=== PATIENT | male | born 1975 | race Caucasian/White ===

== ENCOUNTER 2022-05-22 20:36 | Observation (INO) | payer BC, OTHER ==
--- NOTE | 2022-05-22 20:53 | ED ---
General Adult HPI - General Chief complaint: Chest Pain Stated complaint: Chest Pain Time Seen by Provider: 05/22/22 20:51 Source: patient, EMS Mode of arrival: EMS Limitations: no limitations - History of Present Illness Initial comments: Patient presents to the ED by ambulance for evaluation. Patient states that he developed "sharp" chest pain "across my chest" about an hour and a half ago while at rest. Patient states that his pain radiated to his back and into his left arm. Patient states that he had associated nausea, diaphoresis and dyspnea. Patient states that his pain and symptoms have completely resolved at this time. Patient was given a dose of aspirin by EMS. Patient states that he had similar symptoms last night, and he states that he went to [facility] at that time. Patient states that he was admitted to the [facility] hospital overnight, and he was discharged home this morning. Patient states that he had borderline troponins at that hospital. Patient has CAD risk factors of hypertension, hyperlipidemia, family history and smoking. Patient denies fever or chills, headache, focal numbness/weakness/neuro deficit, neck/jaw pain, pleuritic pain, cough or cold symptoms, palpitations, dizziness, syncope, vomiting, abdominal pain, dysuria or urinary symptoms, decreased urine output, leg or calf swelling or pain, or any other symptoms or complaints. - Related Data Allergies Allergy/AdvReac Type Severity Reaction Status Date / Time No Known Allergies Allergy Verified 05/22/22 20:43 Review of Systems ROS Statement: Those systems with pertinent positive or pertinent negative responses have been documented in the HPI. ROS Other: All systems not noted in ROS Statement are negative. Past Medical History Past Medical History: Hyperlipidemia, Hypertension History of Any Multi-Drug Resistant Organisms: None Reported Past Surgical History: No Surgical Hx Reported Past Psychological History: No Psychological Hx Reported Smoking Status: Current some day smoker General Exam Limitations: no limitations General appearance: alert, in no apparent distress Head exam: Present: atraumatic, normocephalic Eye exam: Present: normal appearance, EOMI ENT exam: Present: mucous membranes moist Neck exam: Present: other (Trachea is in midline) Respiratory exam: Present: normal lung sounds bilaterally. Absent: respiratory distress, wheezes, rales, rhonchi, stridor, chest wall tenderness Cardiovascular Exam: Present: regular rate, normal rhythm, normal heart sounds, other (Normal radial pulses bilaterally) GI/Abdominal exam: Present: soft. Absent: distended, tenderness, guarding Extremities exam: Present: other (Negative Homans sign bilaterally). Absent: tenderness, pedal edema, calf tenderness Neurological exam: Present: alert, oriented X3. Absent: motor sensory deficit Psychiatric exam: Present: normal affect, normal mood Skin exam: Present: warm, dry, intact, normal color Course Vital Signs 05/22/22 05/22/22 20:38 20:44 Temperature 97.8 F 98 F Pulse Rate 88 90 Respiratory 16 16 Rate Blood Pressure 109/81 109/81 O2 Sat by Pulse 100 98 Oximetry - Reevaluation(s) Reevaluation #1: 05/22/22 21:42 Case, H&P, test results and EMS management were discussed with Dr Perez. He accepts hospital admission. He agrees with cardiology consultation. He has no further recommendations at this time. 05/22/22 21:47 Patient remains alert and breathing comfortably with a normal room air oxygen saturation. Patient continues to deny having any chest pain or symptoms while in the ED. Patient is aware of his test results, and he agrees with hospital admission at this time. EKG Findings - EKG Comments: EKG Findings:: Normal sinus rhythm, ventricular rate of 82 bpm, no ectopy, normal CO and QRS intervals, normal QT interval, leftward axis, no ST or T-wave abnormality Medical Decision Making - Medical Decision Making Given the patient's CAD risk factors, reported history and Heart score of 4, will admit the patient to the hospital for serial troponins, cardiac monitoring and cardiology consultation. Patient's initial troponin is negative. Patient's EKG does not demonstrate any ST or T-wave abnormality. Patient's d-dimer and chest x-ray are also negative. Dr. Perez has accepted hospital admission. Patient was given a dose of aspirin by EMS. - Lab Data Result diagrams: 05/22/22 20:58 05/22/22 20:58 Lab Results 05/22/22 05/22/22 05/22/22 Range/Units 20:58 20:58 20:58 WBC 8.6 (3.8-10.6) k/uL RBC 5.20 (4.30-5.90) m/uL Hgb 15.0 (13.0-17.5) gm/dL Hct 42.8 (39.0-53.0) % MCV 82.4 (80.0-100.0) fL MCH 28.8 (25.0-35.0) pg MCHC 35.0 (31.0-37.0) g/dL RDW 13.3 (11.5-15.5) % Plt Count 213 (150-450) k/uL MPV 8.1 Neutrophils % 64 % Lymphocytes % 26 % Monocytes % 6 % Eosinophils % 3 % Basophils % 0 % Neutrophils # 5.5 (1.3-7.7) k/uL Lymphocytes # 2.2 (1.0-4.8) k/uL Monocytes # 0.5 (0-1.0) k/uL Eosinophils # 0.2 (0-0.7) k/uL Basophils # 0.0 (0-0.2) k/uL PT 9.9 (9.0-12.0) sec INR 0.9 (<1.2) APTT 24.4 (22.0-30.0) sec D-Dimer 0.23 (<0.60) mg/L FEU Sodium 139 (137-145) mmol/L Potassium 4.1 (3.5-5.1) mmol/L Chloride 105 (98-107) mmol/L Carbon Dioxide 23 (22-30) mmol/L Anion Gap 11 mmol/L BUN 18 (9-20) mg/dL Creatinine 0.84 (0.66-1.25) mg/dL Est GFR (CKD-EPI)AfAm >90 (>60 ml/min/1.73 sqM) Est GFR (CKD-EPI)NonAf >90 (>60 ml/min/1.73 sqM) Glucose 213 H (74-99) mg/dL Calcium 8.9 (8.4-10.2) mg/dL Magnesium 1.9 (1.6-2.3) mg/dL Total Bilirubin 0.5 (0.2-1.3) mg/dL AST 29 (17-59) U/L ALT 42 (4-49) U/L Alkaline Phosphatase 68 (38-126) U/L Troponin I (0.000-0.034) ng/mL NT-Pro-B Natriuret Pep pg/mL Total Protein 6.6 (6.3-8.2) g/dL Albumin 4.4 (3.5-5.0) g/dL 05/22/22 05/22/22 Range/Units 20:58 20:58 WBC (3.8-10.6) k/uL RBC (4.30-5.90) m/uL Hgb (13.0-17.5) gm/dL Hct (39.0-53.0) % MCV (80.0-100.0) fL MCH (25.0-35.0) pg MCHC (31.0-37.0) g/dL RDW (11.5-15.5) % Plt Count (150-450) k/uL MPV Neutrophils % % Lymphocytes % % Monocytes % % Eosinophils % % Basophils % % Neutrophils # (1.3-7.7) k/uL Lymphocytes # (1.0-4.8) k/uL Monocytes # (0-1.0) k/uL Eosinophils # (0-0.7) k/uL Basophils # (0-0.2) k/uL PT (9.0-12.0) sec INR (<1.2) APTT (22.0-30.0) sec D-Dimer (<0.60) mg/L FEU Sodium (137-145) mmol/L Potassium (3.5-5.1) mmol/L Chloride (98-107) mmol/L Carbon Dioxide (22-30) mmol/L Anion Gap mmol/L BUN (9-20) mg/dL Creatinine (0.66-1.25) mg/dL Est GFR (CKD-EPI)AfAm (>60 ml/min/1.73 sqM) Est GFR (CKD-EPI)NonAf (>60 ml/min/1.73 sqM) Glucose (74-99) mg/dL Calcium (8.4-10.2) mg/dL Magnesium (1.6-2.3) mg/dL Total Bilirubin (0.2-1.3) mg/dL AST (17-59) U/L ALT (4-49) U/L Alkaline Phosphatase (38-126) U/L Troponin I 0.027 (0.000-0.034) ng/mL NT-Pro-B Natriuret Pep 36 pg/mL Total Protein (6.3-8.2) g/dL Albumin (3.5-5.0) g/dL - Radiology Data Chest x-ray: Normal chest. Disposition Clinical Impression: Chest pain Disposition: ADMITTED IP TO THIS HOSP Condition: Stable Is patient prescribed a controlled substance at d/c from ED?: No Referrals: Konrad Rangel MD [Primary Care Provider] - 1-2 days Time of Disposition: 21:48
[2022-05-22 21:03] LABS: Basophils % (A) 0 %; Eosinophils # (A) 0.2 k/uL (0-0.7); Eosinophils % (A) 3 %; HCT 42.8 % (39.0-53.0); Lymphocytes # (A) 2.2 k/uL (1.0-4.8); Lymphocytes % (A) 26 %; MCH 28.8 pg (25.0-35.0); MCV 82.4 fL (80.0-100.0); Mean Platelet Volume 8.1; Monocytes # (A) 0.5 k/uL (0-1.0); Monocytes % (A) 6 %; Neutrophils # (A) 5.5 k/uL (1.3-7.7); Neutrophils % (A) 64 %; Platelet Count 213 k/uL (150-450); RDW 13.3 % (11.5-15.5); WBC 8.6 k/uL (3.8-10.6)
[2022-05-22 21:13] LABS: ALT 42 U/L (4-49); AST 29 U/L (17-59); African American GFR (CKD) >90 (>60 ml/min/1.73 sqM); Albumin 4.4 g/dL (3.5-5.0); Alkaline Phosphatase 68 U/L (38-126); Anion Gap 11 mmol/L; Blood Urea Nitrogen 18 mg/dL (9-20); Calcium 8.9 mg/dL (8.4-10.2); Carbon Dioxide 23 mmol/L (22-30); Chloride 105 mmol/L (98-107); Glucose 213 mg/dL (74-99); Magnesium 1.9 mg/dL (1.6-2.3); Non-African American GFR(CKD) >90 (>60 ml/min/1.73 sqM); Potassium 4.1 mmol/L (3.5-5.1); Sodium 139 mmol/L (137-145); Total Bilirubin 0.5 mg/dL (0.2-1.3); Total Protein 6.6 g/dL (6.3-8.2)
[2022-05-22 21:17] LABS: INR 0.9 (<1.2); Partial Thromboplastin Time 24.4 sec (22.0-30.0); Prothrombin Time 9.9 sec (9.0-12.0)
--- NOTE | 2022-05-22 21:23 | XR ---
EXAMINATION TYPE: XR chest 2V DATE OF EXAM: 05/22/2022 COMPARISON: NONE HISTORY: Chest pain TECHNIQUE: 2 views FINDINGS: Heart and mediastinum are normal. Lungs are clear. Diaphragm is normal. Bony thorax is inta ct. IMPRESSION: Normal chest.
[2022-05-23 03:32] LABS: Basophils # (A) 0.1 k/uL (0-0.2); Basophils % (A) 1 %; Eosinophils # (A) 0.3 k/uL (0-0.7); Eosinophils % (A) 3 %; HCT 43.3 % (39.0-53.0); HGB 14.6 gm/dL (13.0-17.5); Lymphocytes # (A) 2.8 k/uL (1.0-4.8); Lymphocytes % (A) 32 %; MCH 28.1 pg (25.0-35.0); MCHC 33.8 g/dL (31.0-37.0); MCV 83.4 fL (80.0-100.0); Mean Platelet Volume 8.3; Monocytes # (A) 0.6 k/uL (0-1.0); Monocytes % (A) 6 %; Neutrophils % (A) 57 %; Platelet Count 196 k/uL (150-450); RDW 13.3 % (11.5-15.5); WBC 8.9 k/uL (3.8-10.6)
[2022-05-23 04:02] LABS: ALT 39 U/L (4-49); AST 25 U/L (17-59); African American GFR (CKD) >90 (>60 ml/min/1.73 sqM); Albumin 4.3 g/dL (3.5-5.0); Alkaline Phosphatase 70 U/L (38-126); Anion Gap 9 mmol/L; Blood Urea Nitrogen 16 mg/dL (9-20); Carbon Dioxide 22 mmol/L (22-30); Chloride 108 mmol/L (98-107); Glucose 171 mg/dL (74-99); Non-African American GFR(CKD) >90 (>60 ml/min/1.73 sqM); Sodium 139 mmol/L (137-145); Total Bilirubin 0.5 mg/dL (0.2-1.3); Total Protein 6.3 g/dL (6.3-8.2)
[2022-05-23] MEDS ORDERED: HEPARIN SODIUM 1,000 UN/ML (10ML VL) IV ONE (04:22)
[2022-05-23] MEDS ORDERED: HEPARIN SODIUM 1,000 UN/ML (10ML VL) IV PRN (04:22)
--- NOTE | 2022-05-23 04:26 | P.HPIM ---
History of Present Illness H&P Date: 05/22/22 The patient is a 47-year-old male with a PMH of type II DM who presents to the emergency room with complaints of chest discomfort. The patient reports that he was at home resting comfortably when he suddenly developed substernal chest pressure, with radiation of the left arm and associated shortness of breath and nausea. 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 States that the pain was 10 out of 10 in maximum intensity, constant, nonpleuritic, lasted for about an hour and half and resolved completely. Reports feeling back at his baseline at the time of interview. Does report that his father at the age of 37 after massive ID. EKG in the emergency room revealed sinus rhythm at 82 bpm with left axis deviation with no ST/T-wave changes noted as reviewed by me. Chest x-ray was unremarkable. Laboratory evaluation was remarkable for troponin 0.027 and glucose 213. Review of systems: Pertinent positives and negatives as discussed in HPI, a complete review of systems was performed and all other systems are negative. Physical examination: General: non toxic, no distress, appears at stated age, obese Derm: no unusual rashes/lesions, warm Head: atraumatic, normocephalic, symmetric Eyes: EOMI, no lid lag, anicteric sclera, pupils equal round reactive to light ENT: Nose and ears atraumatic Neck: No cervical lymphadenopathy, trachea midline, supple Mouth: no lip lesion, mucus membranes moist Cardiovascular: S1S2 reg, no murmur, positive dorsalis pedis pulse bilateral, no edema Lungs: CTA bilateral, no rhonchi, no rales, no accessory muscle use Abdominal: soft, nontender to palpation, no guarding Ext: muscle strength 5 out of 5 in all 4 extremities grossly, no gross muscle atrophy, no contractures, Neuro: CN II-XI grossly intact, no gross focal neuro deficits Psych: Alert, oriented, appropriate affect Assessment/plan Chest pain, rule out ACS -Cardiology consulted -Cardiac monitoring -Trend troponin -Continue with aspirin, statin -Echocardiogram Type II DM -Check A1c -Insulin sliding scale and blood glucose monitoring DVT prophylaxis -Heparin subcu The patient is admitted with an anticipated less than 2 midnight stay for evaluation of chest pain. CODE STATUS: Full Code Discussed with: Patient Anticipated discharge date: In a.m. Anticipated discharge place: Home Past Medical History Past Medical History: Hyperlipidemia, Hypertension History of Any Multi-Drug Resistant Organisms: None Reported Past Surgical History: No Surgical Hx Reported Past Psychological History: No Psychological Hx Reported Smoking Status: Current some day smoker - Past Family History Mother Family Medical History: Coronary Artery Disease (CAD) Medications and Allergies Home Medications Medication Instructions Recorded Confirmed Type Fenofibrate 160 mg PO HS 05/22/22 05/22/22 History Pravastatin Sodium [Pravachol] 40 mg PO HS 05/22/22 05/22/22 History lisinopriL [Zestril] 20 mg PO DAILY 05/22/22 05/22/22 History Allergies Allergy/AdvReac Type Severity Reaction Status Date / Time No Known Allergies Allergy Verified 05/22/22 21:51 Physical Exam Vitals: Vital Signs Temp Pulse Resp BP Pulse Ox 05/22/22 22:07 68 16 108/91 98 05/22/22 20:44 98 F 90 16 109/81 98 05/22/22 20:38 97.8 F 88 16 109/81 100 Intake and Output 05/22/22 05/22/22 05/23/22 14:59 22:59 06:59 Other: Weight 97.522 kg Results CBC & Chem 7: 05/23/22 03:12 05/23/22 03:12 Labs: Abnormal Lab Results - Last 24 Hours (Table) 05/22/22 Range/Units 20:58 Glucose 213 H (74-99) mg/dL
[2022-05-23] MEDS: ASPIRIN 325 MG TAB PO SCH ×2 (04:44→16:55)
[2022-05-23] MEDS: ATORVASTATIN 80 MG TAB PO SCH ×2 (04:44→20:34)
[2022-05-23] MEDS: HEPARIN SOD,PORK IN 0.45% NACL 25,000 UNIT in 0.45% NACL 1 250ML.BAG IV SCH (04:45)
[2022-05-23 05:30] LABS: Glucose,Whole Blood 172 mg/dL (70-110)
[2022-05-23] MEDS: INSULIN ASPART (NovoLOG) 100 UNIT/ML VIAL SQ SCH ×4 (06:44→20:36)
[2022-05-23] MEDS ORDERED: ALPRAZolam 0.5 MG TAB PO PRN (07:18)
[2022-05-23] MEDS ORDERED: NITROGLYCERIN SL TABS 0.4 MG TAB SUBLINGUAL PRN ×2 (07:18→11:11)
[2022-05-23] MEDS ORDERED: ALPRAZolam 0.25 MG TAB PO PRN (07:18)
--- NOTE | 2022-05-23 09:43 | P.CRDCN ---
History of Present Illness History of present illness: HISTORY OF PRESENTING ILLNESS This is a pleasant 47-year-old male past medical history significant for hypertension, dyslipidemia, borderline diabetes intolerance to metformin. 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 We have been asked to see in consultation for chest pain. Patient presents emergency department with complaints of chest discomfort that began on Monday night and progressed into Monday morning. He states that he was sitting down, had sharp chest pain across his chest. Radiating to his back and his left arm. He had associated shortness of breath. His pain lasted for about 2 hours. He initially presented to [facility] at that time, patient states he was admitted overnight but was discharged in the morning to follow up with cardiology. He continued to have chest discomfort and presented to [facility]. He denies any diaphoresis, nausea, vomiting, lightheadedness, dizziness, syncope or near syncope. He states that he occasionally smokes cigarettes. Denies illicit drug use. Family history includes his father had an AL in his 30s. His chest pain has resolved at time of exam. DIAGNOSTICS * EKG reveals sinus rhythm, heart rate 82, mild ST abnormalities inferiorly, T wave abnormalities in V2. No prior EKGs to compare * Telemetry tracings indicate sinus mechanism * Chest xray no acute cardiopulmonary process * Laboratory reviewed, troponin negative, repeat 0.075) 76, CBC unremarkable, d- dimer negative, sodium 139, potassium 4.0, BUN 16, serum ferritin 0.7, magnesium 1.9, proBNP 36 * Current home medications include lisinopril 20 mg daily, pravastatin 40 mg daily, fenofibrate 160 mg nightly REVIEW OF SYSTEMS At the time of my exam: Patient's symptoms have resolved CONSTITUTIONAL: Denies fever or chills. CARDIOVASCULAR: Denies chest pain, shortness of breath, orthopnea, PND or palpitations. RESPIRATORY: Denies cough. GASTROINTESTINAL: Denies abdominal pain, diarrhea, constipation, nausea or vomiting. MUSCULOSKELETAL: Denies myalgias. NEUROLOGIC: Denies numbness, tingling, headacbe or weakness. ENDOCRINE: Denies fatigue, weight change, polydipsia or polyurina. GENITOURINARY: Denies burning, hematuria or urgency with micturation. HEMATOLOGIC: Denies history of anemia or bleeding. PHYSICAL EXAMINATION Blood pressure 112/73, heart rate 70, afebrile, oxygen saturations 98% on room air CONSTITUTIONAL: No apparent distress. HEENT: Head is normocephalic. Pupils are equal, round. Sclerae anicteric. Mucous membranes of the mouth are moist. No JVD. No carotid bruit. CHEST EXAMINATION: Lungs are clear to auscultation. No chest wall tenderness is noted on palpation or with deep breathing. HEART EXAMINATION: Regular rate and rhythm. S1, S2 heard. No murmurs, gallops or rub. ABDOMEN: Soft, nontender. Positive bowel sounds. EXTREMITIES: 2+ peripheral pulses, no lower extremity edema and no calf tenderness. NEUROLOGIC EXAMINATION: Patient is awake, alert and oriented x3. ASSESSMENT NSTEMI Hypertension Dyslipidemia Borderline diabetes per patient PLAN Recommend cardiac catheterization, patient is agreeable IV heparin, aspirin statin Obtain 2D echocardiogram and doppler study to assess cardiac structure and funct ion. Lipid panel, hemoglobin A1C I have discussed the risks, benefits and alternative therapies for the above- mentioned procedure and for both sedation/analgesia as well as necessary blood product administration, if indicated, as they pertain to this patient. The patient has indicated understanding and acceptance of the risks and procedures discussed. Questions have been answered appropriately and he is agreeable to move forward with the above-stated procedure. Further recommendations based on current course Nurse practitioner note has been reviewed by physician. Signing provider agrees with the documented findings, assessment, and plan of care. Past Medical History Past Medical History: Hyperlipidemia, Hypertension History of Any Multi-Drug Resistant Organisms: None Reported Past Surgical History: No Surgical Hx Reported Past Psychological History: No Psychological Hx Reported Smoking Status: Current some day smoker - Past Family History Mother Family Medical History: Coronary Artery Disease (CAD) Medications and Allergies Home Medications Medication Instructions Recorded Confirmed Type Fenofibrate 160 mg PO HS 05/22/22 05/22/22 History Pravastatin Sodium [Pravachol] 40 mg PO HS 05/22/22 05/22/22 History lisinopriL [Zestril] 20 mg PO DAILY 05/22/22 05/22/22 History Allergies Allergy/AdvReac Type Severity Reaction Status Date / Time No Known Allergies Allergy Verified 05/22/22 21:51 Physical Exam Vitals: Vital Signs Temp Pulse Resp BP Pulse Ox 05/23/22 06:22 70 16 105/73 98 05/23/22 05:01 98 F 72 16 106/84 99 05/23/22 04:48 77 16 115/79 96 05/23/22 03:50 64 16 108/69 98 05/23/22 01:28 80 16 102/66 96 05/23/22 00:06 71 16 109/81 95 05/22/22 22:07 68 16 108/91 98 05/22/22 20:44 98 F 90 16 109/81 98 05/22/22 20:38 97.8 F 88 16 109/81 100 Intake and Output 05/22/22 05/23/22 05/23/22 22:59 06:59 14:59 Other: Weight 97.522 kg Results 05/23/22 03:12 05/23/22 03:12 Cardiac Enzymes 05/22/22 05/22/22 05/22/22 Range/Units 20:58 20:58 22:50 AST 29 (17-59) U/L Troponin I 0.027 0.075 H* (0.000-0.034) ng/mL 05/23/22 05/23/22 Range/Units 03:12 03:12 AST 25 (17-59) U/L Troponin I 0.076 H* (0.000-0.034) ng/mL Coagulation 05/22/22 Range/Units 20:58 PT 9.9 (9.0-12.0) sec APTT 24.4 (22.0-30.0) sec CBC 05/22/22 05/23/22 Range/Units 20:58 03:12 WBC 8.6 8.9 (3.8-10.6) k/uL RBC 5.20 5.20 (4.30-5.90) m/uL Hgb 15.0 14.6 (13.0-17.5) gm/dL Hct 42.8 43.3 (39.0-53.0) % Plt Count 213 196 (150-450) k/uL Comprehensive Metabolic Panel 05/22/22 05/23/22 Range/Units 20:58 03:12 Sodium 139 139 (137-145) mmol/L Potassium 4.1 4.0 (3.5-5.1) mmol/L Chloride 105 108 H (98-107) mmol/L Carbon Dioxide 23 22 (22-30) mmol/L BUN 18 16 (9-20) mg/dL Creatinine 0.84 0.78 (0.66-1.25) mg/dL Glucose 213 H 171 H (74-99) mg/dL Calcium 8.9 9.0 (8.4-10.2) mg/dL AST 29 25 (17-59) U/L ALT 42 39 (4-49) U/L Alkaline Phosphatase 68 70 (38-126) U/L Total Protein 6.6 6.3 (6.3-8.2) g/dL Albumin 4.4 4.3 (3.5-5.0) g/dL Current Medications Generic Name Dose Route Start Last Admin Trade Name Freq PRN Reason Stop Dose Admin Aspirin 325 mg 05/23/22 04:25 05/23/22 04:44 Aspirin 325 Mg Tab PO 325 mg DAILY BASIL Administration Atorvastatin Calcium 80 mg 05/23/22 04:25 05/23/22 04:44 Atorvastatin 80 Mg Tab PO 80 mg HS BASIL Administration Heparin Sodium (Porcine) 0 unit 05/23/22 04:22 Heparin Sodium 1,000 Un/Ml (10ml Vl) IV PER PROTOCOL PRN Low PTT Protocol Heparin Sodium/Sodium Chloride 250 mls @ 10 mls/hr 05/23/22 04:30 05/23/22 04:45 25,000 unit/ Sodium Chloride IV 10.2541 units/kg/hr .Q24H BASIL 10 mls/hr Administration Protocol 10.2541 UNITS/KG/HR Insulin Aspart 0 unit 05/23/22 07:30 05/23/22 06:44 Insulin Aspart (Novolog) 100 Unit/Ml Vial SQ 2 unit ACHS BASIL Administration Protocol Intake and Output 05/22/22 05/23/22 05/23/22 22:59 06:59 14:59 Other: Weight 97.522 kg 05/23/22 03:12 05/23/22 03:12
[2022-05-23] MEDS ORDERED: HEPARIN SODIUM 1,000 UN/ML (10ML VL) ONE (10:10)
[2022-05-23] MEDS ORDERED: VERAPAMIL 2.5 MG/ML 2 ML AMP ONE (10:10)
[2022-05-23] MEDS ORDERED: MIDAZOLAM 2 MG/2 ML VIAL IV ONE ×2 (10:20→10:32)
[2022-05-23] MEDS ORDERED: LIDOCAINE 1% INJ 10MG/ML (30 ML VIAL-PF) SQ ONE (10:21)
[2022-05-23] MEDS ORDERED: VERAPAMIL SYRINGE (5 MG/10 ML) INTRAARTER ONE (10:22)
[2022-05-23] MEDS: HEPARIN SODIUM 1,000 UN/ML (10ML VL) IV ONE ×2 (10:24→10:36)
[2022-05-23] MEDS ORDERED: IV FLUID CONTINUATION 1,000 ML IV ONE (10:25)
[2022-05-23] MEDS ORDERED: PRASUGREL 10 MG TAB ONE ×2 (10:31→10:32)
[2022-05-23] MEDS ORDERED: PRASUGREL 10 MG TAB PO ONE (10:36)
[2022-05-23] MEDS ORDERED: HYDROmorphone 0.5 MG/0.5 ML SYRINGE IVP ONE (10:41)
[2022-05-23] MEDS ORDERED: niCARdipine 25 MG/10 ML VIAL ONE (10:42)
[2022-05-23] MEDS ORDERED: fentaNYL (PF) 50 MCG/ML 2 ML AMP ONE (10:50)
[2022-05-23] MEDS ORDERED: NITROGLYCERIN 1000MCG/10ML SYRINGE INTRACORON ONE (10:51)
[2022-05-23] MEDS ORDERED: fentaNYL (PF) 50 MCG/ML 2 ML AMP IV ONE (10:52)
[2022-05-23] MEDS ORDERED: IOPAMIDOL-370 125ML BTL INJ ONE (11:06)
[2022-05-23] MEDS ORDERED: ATROPINE SULFATE 0.1 MG/ML 10ML SYRINGE IV PRN (11:11)
[2022-05-23] MEDS ORDERED: MAG HYDROX/AL HYDROX/SIMETH 30 ML CUP PO PRN (11:11)
[2022-05-23] MEDS ORDERED: RX INFO: IV CONTRAST WAS GIVEN 1 EACH MISC MISCELLANE PRN (11:11)
[2022-05-23] MEDS ORDERED: ZOLPIDEM 5 MG TAB PO PRN (11:11)
[2022-05-23] MEDS ORDERED: SODIUM CHLORIDE 0.9% 1,000 ML in EMPTY BAG 1 BAG IV SCH (11:15)
--- NOTE | 2022-05-23 11:19 | P.PCN ---
Date of Procedure: 05/23/22 Operative Findings: CARDIAC CATHETERIZATION AND PERCUTANEOUS CORONARY INTERVENTION PERFORMING PHYSICIAN: Conner Solis MD, VI PROCEDURE PERFORMED: 1. Selective right and left coronary angiogram 2. Left heart catheterization 3. Successful stenting of the proximal LAD using 3.5 x 15 mm Xience BRYCE which was postdilated using 3.75 mm NC balloon with an excellent angiographic results 4. Intravascular ultrasound of the left anterior descending artery INDICATION: This is a 47-year-old gentleman was borderline diabetes and hypertension and dyslipidemia and history of smoking presented to the emergency department chest discomfort. He was ruled in for acute coronary event. In the light of that heart catheterization was COMPLICATION: None APPROACH: Right radial artery LEVEL OF SEDATION: Moderate with a sedation length of 47 minutes PROCEDURE DESCRIPTION: After obtaining an informed consent, the patient was brought to cardiac supervisor laboratory. Local anesthesia was performed using lidocaine subcutaneously. The right radial artery was cannulated using Seldinger technique, the guidewire passed easily, following that we advanced a 5-Maltese sheath dilator assembly, the wire and dilator were removed and sheath was flushed. Following that, 2 mg of verapamil along with 5000 unit heparin were given. Selective right and left coronary angiogram using a 6-Maltese JR4 and JL 3.5 catheters. Following that we did left heart catheterization using 6-Maltese pigtail catheter. After that I did intervene on the LAD The procedure was completed there was no complication. SELECTIVE CORONARY ANGIOGRAM: The right coronary artery: Large caliber vessel and a dominant vessel. The proximal RCA has mild to moderate disease. Distally bifurcates into PDA and PLV branches. The PDA branch appears to have mild disease only. The PLV branch has intermediate lesion appeared to be in the range of 60%. Left main: Is angiographically normal. Bifurcates into an LCx and LAD The left circumflex: Large caliber vessel nondominant vessel. The LCx has mild disease only involving the first obtuse marginal branch of the left circumflex The left anterior descending artery: Large caliber vessel. The proximal LAD by the bifurcation of a large septal vacuum metalizing supervisor has thrombotic lesion appeared to be in the range of 99.9%. The LAD after that gives rises into a large diagonal branch which has intermediate lesion appears to be in the range of 60%. The LAD itself in the mid and distal portion appears to have mild disease only. HEMODYNAMICS: The LVEDP was about 10-12 mmHg was no significant gradient across aortic valve PCI of the LAD; Anticoagulation was initiated using heparin with continuous ACT monitoring. At the beginning the patient was given a total of 10,000 units of heparin IV. Subsequently I did engage the left main using JL 3.5 guiding catheter. I did wire the LAD using a run-through wire. PTCA ballooning was performed using 30 by 12 mm balloon before I deployed 3.5 x 15 mm stent where the stent was positioned under fluoroscopy guidance and deployed under 10 lizeth for 20 seconds. The following angiogram showed possible proximal edge dissection. Further investigation was performed using intravascular ultrasound which showed no evidence of edge dissection. The stent was a slightly under deployed. For that reason I postdilated using 3.75 mm noncompliant balloon was inflated under 12 lizeth for 20 seconds. The final angiogram showed an excellent angiographic result CONCLUSION: 1. Critical disease involving the proximal LAD with a thrombotic lesion appeared to be in the range of 99.9%. I performed successful stenting of the LAD. The patient still have at least intermediate lesion involving a large diagonal branch 2. Intermediate lesion also involving the PLV branch of the RCA which is also a large caliber vessel POSTPROCEDURE MANAGEMENT: Dual antiplatelet therapy using aspirin and Effient for 12 month. Aggressive cholesterol control Risk factors modification
--- NOTE | 2022-05-23 11:28 | P.PN ---
Subjective Progress Note Date: 05/23/22 Hospital course: Patient is a very pleasant 47-year-old male with a past medical history of type 2 diabetes mellitus, hypertension, and hyperlipidemia. He presented to the emergency department with a chief complaint of chest pain. Patient reports while resting comfortably in his recliner he suddenly developed a pressure-like pain to his midsternal chest which radiated into his left arm associated by shortness of breath and nausea. Patient has strong family history of sudden car diac with his father dying at the age of 37 from a massive [place]. Patient underwent full evaluation in the emergency department. CBC, CMP, and coags are unremarkable. D-dimer negative at 0.23. Troponin 0.027. EKG showing sinus mechanism at 82 bpm with no noted showing no signs of acute ischemia. Chest x- ray negative for acute cardiopulmonary process. Patient admitted under our services with consultation to cardiology. Troponins trended resulting in 0.027, 0.075, and 0.076. Patient was started on heparin with plans to be taken down for cardiac cath later today. Physical exam: Vital signs reviewed and stable. General: Nontoxic, no distress and appears stated age. Derm: Skin warm and dry, normal coloration for ethnicity. Head: Atraumatic, normocephalic and symmetric. Eyes: EOMs intact, no lid lag, and anicteric sclera Mouth: no lip lesions, mucus membranes moist Cardiovascular: regular rate and rhythm with normal S1S2, no murmur, positive posterior tibial pulses bilaterally, and cap refill < 2 seconds. Lungs: Respirations even, regular, and unlabored on room air. Lungs CTA bilaterally, no rhonchi, no rales, no wheezing, and no accessory muscle usage. Abdominal: soft, nontender to palpation, no guarding, no appreciable organomegaly Ext: ROM intact. No gross muscle atrophy, no edema, no contractures Neuro: Speech clear, face symmetrical and CN II-XII grossly intact with no noted focal neuro deficits Psych: Alert and oriented to person, place, time, and situation. Appropriate and pleasant affect. Assessment and Plan of Care: NSTEMI -Cardiology following, taking patient for cardiac cath later today -Telemetry monitoring -Trend troponins -NPO pending completion of cardiac cath May resume heart healthy diet after cath completed -Aspirin, atorvastatin, and metoprolol -Lipid profile with a.m. labs. -Echocardiogram Type 2 [id number] diabetes mellitus with hyperglycemia -Hemoglobin A1c to be completed -Patient placed on glycemic protocol with NovoLog sliding scale. Hypertension Monitor vital signs and continue daily medication regimen with lisinopril and metoprolol. Hyperlipidemia Continue daily medication regimen with fenofibrate and atorvastatin. CODE STATUS: Full code DVT prophylaxis: Heparin Discussed with: Patient, RN, and patient's and son at bedside Anticipated discharge date: 1-[address]: Home A total of 35 minutes was spent on the care of this complex patient more than 50% of the time was spent in counseling and care coordination. Objective - Vital Signs Vital signs: Vital Signs Temp 98 F 05/23/22 05:01 Pulse 70 05/23/22 06:22 Resp 16 05/23/22 06:22 BP 105/73 05/23/22 06:22 Pulse Ox 98 05/23/22 06:22 FiO2 Intake & Output 05/22/22 05/23/22 05/23/22 18:59 06:59 18:59 Weight 97.522 kg - Labs CBC & Chem 7: 05/23/22 03:12 05/23/22 03:12 Labs: Abnormal Lab Results - Last 24 Hours (Table) 05/22/22 05/22/22 05/23/22 Range/Units 20:58 22:50 03:12 Chloride (98-107) mmol/L Glucose 213 H (74-99) mg/dL POC Glucose (mg/dL) (70-110) mg/dL Troponin I 0.075 H* 0.076 H* (0.000-0.034) ng/mL 05/23/22 05/23/22 Range/Units 03:12 05:28 Chloride 108 H (98-107) mmol/L Glucose 171 H (74-99) mg/dL POC Glucose (mg/dL) 172 H (70-110) mg/dL Troponin I (0.000-0.034) ng/mL
[2022-05-23] MEDS: SODIUM CHLORIDE 0.9% 1,000 ML in EMPTY BAG 1 BAG IV SCH ×2 (16:37→17:02)
[2022-05-23 17:09] LABS: Glucose,Whole Blood 110 mg/dL (70-110)
[2022-05-23] MEDS: METOPROLOL TARTRATE 25 MG TAB PO SCH (20:32)
[2022-05-23 20:35] LABS: Glucose,Whole Blood 196 mg/dL (70-110)
[2022-05-23] MEDS ORDERED: FENOFIBRATE 160 MG TAB PO SCH (21:00)
[2022-05-24] MEDS: SODIUM CHLORIDE 0.9% 1,000 ML in EMPTY BAG 1 BAG IV SCH ×2 (03:24→18:04)
[2022-05-24] MEDS: HEPARIN SOD,PORK IN 0.45% NACL 25,000 UNIT in 0.45% NACL 1 250ML.BAG IV SCH (03:25)
[2022-05-24 06:09] LABS: Glucose,Whole Blood 131 mg/dL (70-110)
[2022-05-24] MEDS: INSULIN ASPART (NovoLOG) 100 UNIT/ML VIAL SQ SCH ×2 (06:38→12:10)
[2022-05-24 06:58] LABS: Basophils % (A) 1 %; Eosinophils # (A) 0.2 k/uL (0-0.7); Eosinophils % (A) 2 %; HCT 42.5 % (39.0-53.0); HGB 14.6 gm/dL (13.0-17.5); Lymphocytes # (A) 2.2 k/uL (1.0-4.8); Lymphocytes % (A) 26 %; MCH 28.5 pg (25.0-35.0); MCHC 34.4 g/dL (31.0-37.0); MCV 82.7 fL (80.0-100.0); Mean Platelet Volume 8.2; Monocytes # (A) 0.5 k/uL (0-1.0); Monocytes % (A) 6 %; Neutrophils # (A) 5.4 k/uL (1.3-7.7); Neutrophils % (A) 63 %; Platelet Count 198 k/uL (150-450); RBC 5.14 m/uL (4.30-5.90); RDW 13.2 % (11.5-15.5); WBC 8.5 k/uL (3.8-10.6)
[2022-05-24] MEDS ORDERED: HEPARIN SODIUM,PORCINE 2,500 UNIT in SODIUM CHLORIDE 0.9% 250 ML IRRIGATION PRN (07:00)
[2022-05-24] MEDS ORDERED: HEPARIN SODIUM,PORCINE 10,000 UNIT in SODIUM CHLORIDE 0.9% 1,000 ML IRRIGATION PRN (07:00)
[2022-05-24 07:04] LABS: INR 0.9 (<1.2); Prothrombin Time 10.2 sec (9.0-12.0)
[2022-05-24 07:07] LABS: ALT 43 U/L (4-49); AST 28 U/L (17-59); African American GFR (CKD) >90 (>60 ml/min/1.73 sqM); Albumin 4.2 g/dL (3.5-5.0); Alkaline Phosphatase 64 U/L (38-126); Anion Gap 10 mmol/L; Blood Urea Nitrogen 14 mg/dL (9-20); Calcium 9.2 mg/dL (8.4-10.2); Carbon Dioxide 21 mmol/L (22-30); Chloride 108 mmol/L (98-107); Glucose 125 mg/dL (74-99); Non-African American GFR(CKD) >90 (>60 ml/min/1.73 sqM); Potassium 4.4 mmol/L (3.5-5.1); Sodium 139 mmol/L (137-145); Total Bilirubin 0.6 mg/dL (0.2-1.3); Total Protein 6.5 g/dL (6.3-8.2)
[2022-05-24] MEDS: METOPROLOL TARTRATE 25 MG TAB PO SCH (08:38)
[2022-05-24] MEDS ORDERED: ASPIRIN 81 MG PO SCH (09:00)
[2022-05-24] MEDS ORDERED: PRASUGREL 10 MG TAB PO SCH (09:00)
[2022-05-24] MEDS ORDERED: lisinopriL 20 MG TAB PO SCH (09:00)
[2022-05-24 11:01] VITALS: BMI 31.7
--- NOTE | 2022-05-24 11:21 | P.PN ---
Subjective This is a pleasant 47-year-old male past medical history significant for hypertension, dyslipidemia, borderline diabetes intolerance to metformin. 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 We have been asked to see in consultation for chest pain. Patient presents emergency department with complaints of chest discomfort, concerning for NSTEMI. He underwent cardiac catheterization with Dr. Solis which revealed critical disease involving the proximal LAD with a thrombotic lesion appeared to be in the range of 99.9%. Patient underwent stenting of the LAD, Intermediate lesion involving a large diagonal branch, Intermediate lesion also involving the PLV branch of the RCA which is also a large caliber vessel. 05/24/2022 Patient seen and examined at bedside, no acute distress. His chest pain has resolved. Denies any shortness of breath, palpitations. He is maintaining sinus mechanism. Blood pressure 119/76, heart rate 83, afebrile, saturations 96% on room air. 2-D echocardiogram pending. He's currently maintained on aspirin 81 mg daily, atorvastatin 80 mg nightly, lisinopril 20 mg daily, metoprolol titrate 25 mg twice a day, Effient 10 mg daily Labs, sodium 139, potassium 4.4, BUN 14, serum creatinine 0.7, hemoglobin A1c 7.4 PHYSICAL EXAMINATION Blood pressure 112/73, heart rate 70, afebrile, oxygen saturations 98% on room air CONSTITUTIONAL: No apparent distress. HEENT: Head is normocephalic. No JVD. CHEST EXAMINATION: Lungs are clear to auscultation. No chest wall tenderness is noted on palpation or with deep breathing. HEART EXAMINATION: Regular rate and rhythm. S1, S2 heard. No murmurs, gallops or rub. ABDOMEN: Soft, nontender. Positive bowel sounds. EXTREMITIES: 2+ peripheral pulses, no lower extremity edema and no calf tenderness. Right radial cath site, clean, dry, no hematoma, 2+ peripheral pulses NEUROLOGIC EXAMINATION: Patient is awake, alert and oriented x3. ASSESSMENT NSTEMI Status post PCI LAD on 05/23 Intermediate lesion involving a large diagonal branch, Intermediate lesion also involving the PLV branch of the RCA which is also a large caliber vessel. Hypertension Dyslipidemia Type 2 Diabetes PLAN Obtain 2D echocardiogram and doppler study to assess cardiac structure and function. Continue dual antiplatelet therapy with aspirin and Effient Continue high intensity statin Continue Lisinopril and beta debby If echocardiogram with no acute findings ok to discharge from a cardiology p erspective and follow up outpatient with Dr Solis within 1 week. Nurse practitioner note has been reviewed by physician. Signing provider agrees with the documented findings, assessment, and plan of care. Objective - Vital Signs Vital signs: Vital Signs Temp 98.2 F 05/24/22 08:15 Pulse 83 05/24/22 08:15 Resp 14 05/24/22 08:15 BP 119/76 05/24/22 08:15 Pulse Ox 96 05/24/22 08:15 FiO2 Intake & Output 05/23/22 05/24/22 05/24/22 18:59 06:59 18:59 Intake Total 1118 150 118 Balance 1118 150 118 Weight 97.522 kg Intake: IV 1000 Intake, IV Titration 150 Amount Sodium Chloride 0.9% 1, 150 000 ml In Empty Bag 1 bag @ 75 mls/hr IV .[id number] [facility] Rx#:[id number] Oral 118 118 Other: Voiding Method Toilet Toilet Toilet # Voids 1 - Labs CBC & Chem 7: 05/24/22 06:18 05/24/22 06:18 Labs: Abnormal Lab Results - Last 24 Hours (Table) 05/23/22 05/23/22 05/24/22 Range/Units 09:47 20:34 06:06 Chloride (98-107) mmol/L Carbon Dioxide (22-30) mmol/L Glucose (74-99) mg/dL POC Glucose (mg/dL) 196 H 131 H (70-110) mg/dL Hemoglobin A1c 7.4 H (0.0-6.0) % 05/24/22 Range/Units 06:18 Chloride 108 H (98-107) mmol/L Carbon Dioxide 21 L (22-30) mmol/L Glucose 125 H (74-99) mg/dL POC Glucose (mg/dL) (70-110) mg/dL Hemoglobin A1c (0.0-6.0) %
[2022-05-24 12:01] LABS: Glucose,Whole Blood 119 mg/dL (70-110)
--- NOTE | 2022-05-24 15:34 | P.PN ---
Subjective Progress Note Date: 05/24/22 Hospital course: Patient is a very pleasant 47-year-old male with a past medical history of type 2 diabetes mellitus, hypertension, and hyperlipidemia. He presented to the emergency department with a chief complaint of chest pain. Patient reports while resting comfortably in his recliner he suddenly developed a pressure-like pain to his midsternal chest which radiated into his left arm associated by shortness of breath and nausea. Patient has strong family history of sudden car diac with his father dying at the age of 37 from a massive [place]. Patient underwent full evaluation in the emergency department. CBC, CMP, and coags are unremarkable. D-dimer negative at 0.23. Troponin 0.027. EKG showing sinus mechanism at 82 bpm with no noted showing no signs of acute ischemia. Chest x- ray negative for acute cardiopulmonary process. Patient admitted under our services with consultation to cardiology. Troponins trended resulting in 0.027, 0.075, and 0.076. Patient was started on heparin and taken for cardiac cath on 05/23/22 where he underwent successful stenting of the proximal LAD. Cardiology recommending dual antiplatelet therapy for the next 12 months and recommending patient follow-up in office to further discussed staged percutaneous stenting as patient has additional lesions involving the large diagonal branch in the PLV branch of the RCA. Echocardiogram completed and currently pending results. Patient will likely be discharged later today versus tomorrow pending echo results and cardiology clearance. Medically patient is stable for discharge h ome at this time as he is free from any complaints or concerns. Physical exam: Patient seen and fully evaluated at the bedside this morning. Patient doing well and denies having any complaints at this time. Cardiac cath site to right wrist intact showing no signs of bleeding, drainage, or hematoma. Patient denies having any numbness or tingling or experiencing any further episodes of chest pain or discomfort. Echocardiogram has been completed and pending results. Plan is for discharge once cleared by cardiology as patient is medically stable for discharge home. Vital signs reviewed and stable. General: Nontoxic, no distress and appears stated age. Derm: Skin warm and dry, normal coloration for ethnicity. Head: Atraumatic, normocephalic and symmetric. Eyes: EOMs intact, no lid lag, and anicteric sclera Mouth: no lip lesions, mucus membranes moist Cardiovascular: regular rate and rhythm with normal S1S2, no murmur, positive posterior tibial pulses bilaterally, and cap refill < 2 seconds. Lungs: Respirations even, regular, and unlabored on room air. Lungs CTA bilaterally, no rhonchi, no rales, no wheezing, and no accessory muscle usage. Abdominal: soft, nontender to palpation, no guarding, no appreciable organomegaly Ext: ROM intact. No gross muscle atrophy, no edema, no contractures Neuro: Speech clear, face symmetrical and CN II-XII grossly intact with no noted focal neuro deficits Psych: Alert and oriented to person, place, time, and situation. Appropriate and pleasant affect. Assessment and Plan of Care: NSTEMI -Cardiology following -Patient was started on heparin and taken for cardiac cath on 05/23/22 where he underwent successful stenting of the proximal LAD. -Cardiology recommending dual antiplatelet therapy for the next 12 months and recommending patient follow-up in office to further discussed staged percutaneous stenting as patient has additional lesions involving the large diagonal branch in the PLV branch of the RCA. -Echocardiogram completed and currently pending results. -Telemetry monitoring -Heart healthy diet -Continue cardiac medication regimen with Aspirin, Effient, atorvastatin, lisinopril and metoprolol Type 2 [id number] diabetes mellitus with hyperglycemia -Hemoglobin A 7.4%, patient currently on glycemic protocol with NovoLog sliding scale will require initiation of oral hypoglycemic agent such as metformin upon discharge. -Patient placed on glycemic protocol with NovoLog sliding scale. Hypertension Monitor vital signs and continue daily medication regimen with lisinopril and metoprolol. Hyperlipidemia Continue daily medication regimen with fenofibrate and atorvastatin. CODE STATUS: Full code DVT prophylaxis: Heparin Discussed with: Patient, RN, and patient's and son at bedside Anticipated discharge date: later today versus tomorrow, awaiting echocardiogram results. Discharge place: Home A total of 35 minutes was spent on the care of this complex patient more than 50% of the time was spent in counseling and care coordination. Objective - Vital Signs Vital signs: Vital Signs Temp 98.2 F 05/24/22 08:15 Pulse 83 05/24/22 08:15 Resp 14 05/24/22 08:15 BP 119/76 05/24/22 08:15 Pulse Ox 96 05/24/22 08:15 FiO2 Intake & Output 05/23/22 05/24/22 05/24/22 18:59 06:59 18:59 Intake Total 1118 150 118 Balance 1118 150 118 Weight 97.522 kg Intake: IV 1000 Intake, IV Titration 150 Amount Sodium Chloride 0.9% 1, 150 000 ml In Empty Bag 1 bag @ 75 mls/hr IV .[id number] [facility] Rx#:[id number] Oral 118 118 Other: Voiding Method Toilet Toilet Toilet # Voids 1 - Labs CBC & Chem 7: 05/24/22 06:18 05/24/22 06:18 Labs: Abnormal Lab Results - Last 24 Hours (Table) 05/23/22 05/23/22 05/24/22 Range/Units 09:47 20:34 06:06 Chloride (98-107) mmol/L Carbon Dioxide (22-30) mmol/L Glucose (74-99) mg/dL POC Glucose (mg/dL) 196 H 131 H (70-110) mg/dL Hemoglobin A1c 7.4 H (0.0-6.0) % 05/24/22 Range/Units 06:18 Chloride 108 H (98-107) mmol/L Carbon Dioxide 21 L (22-30) mmol/L Glucose 125 H (74-99) mg/dL POC Glucose (mg/dL) (70-110) mg/dL Hemoglobin A1c (0.0-6.0) %
--- NOTE | 2022-05-24 15:54 | CA ---
Transthoracic Echo Report Name: Wily Funes Age: 47 Gender: M : 1975 Exam Date: 05/24/2022 09:16 Exam Location: [place] [facility] Ht (in): 69 Wt (lb): 215 Ordering Physician: Alberto Perez MD Attending/Referring Phys: Career Education Teacher Chaparrita Staples RDCS Procedure CPT: Indications: Chest Pain Cardiac Hx: Technical Quality: Good Contrast 1: Total Dose (mL): Contrast 2: Total Dose (mL): MEASUREMENTS (Male / Female) Normal Values 2D ECHO LV Diastolic Diameter PLAX 5.0 cm 4.2 - 5.9 / 3.9 - 5.3 cm LV Systolic Diameter PLAX 3.4 cm IVS Diastolic Thickness 1.1 cm 0.6 - 1.0 / 0.6 - 0.9 cm LVPW Diastolic Thickness 1.1 cm 0.6 - 1.0 / 0.6 - 0.9 cm LV Relative Wall Thickness 0.4 RV Internal Dim ED PLAX 3.6 cm LA Systolic Diameter LX 3.8 cm 3.0 - 4.0 / 2.7 - 3.8 cm LA Volume 31.5 cm??? 18 - 58 / 22 - 52 cm??? M-MODE Aortic Root Diameter MM 3.7 cm MV E Point Septal Separation 0.5 cm AV Cusp Separation MM 2.6 cm DOPPLER AV Peak Velocity 132.7 cm/s AV Peak Gradient 7.0 mmHg MV Area PHT 3.7 cm??? Mitral E Point Velocity 67.5 cm/s Mitral A Point Velocity 67.1 cm/s Mitral E to A Ratio 1.0 MV Deceleration Time 204.0 ms MV E' Velocity 6.3 cm/s Mitral E to MV E' Ratio 10.8 FINDINGS Left Ventricle Left ventricular ejection fraction is estimated at 55-60 %. Left ventricular cavity size normal. Left ventricular wall thickness normal. Right Ventricle Mild right ventricular dilatation. Unable to estimate the right ventricular systolic pressure. Right Atrium Normal right atrial size. Left Atrium Normal left atrial size. No evidence for an atrial septal defect. Mitral Valve Structurally normal mitral valve. No mitral stenosis, regurgitation or prolapse. Aortic Valve Trileaflet aortic valve. No aortic valve stenosis or regurgitation. Tricuspid Valve Structurally normal tricuspid valve. No tricuspid stenosis, regurgitation or prolapse. Pulmonic Valve Trace pulmonic regurgitation. Pericardium Normal pericardium. No pericardial effusion. Aorta Normal size aortic root and proximal ascending aorta. CONCLUSIONS Normal LV systolic function Mildly enlarged right ventricle Previewed by: Dr. Keo Holbrook MD (Electronically Signed) Final Date: 24 May 2022 15:53
--- NOTE | 2022-05-24 16:42 | P.DS ---
Providers Date of admission: 05/22/22 21:49 Expected date of discharge: 05/24/22 Attending physician: Alberto Perez MD Consults: 05/22/22 21:48 Consult Physician Urgent Consulting Provider: Conner Solis Consult Reason/Comments: Chest pain Do you want consulting provider notified?: Yes 05/23/22 11:12 Consult Physician Routine Consulting Provider: [facility] Consult Reason/Comments: Post Interventional Patient Do you want consulting provider notified?: Already Contacted Primary care physician: Konrad [facility] Course: Discharge Diagnosis: NSTEMI, status post successful stenting of the proximal LAD. Cardiology recommending dual antiplatelet therapy for the next 12 months and recommending patient follow-up in office to further discussed staged percutaneous stenting as patient has additional lesions involving the large diagonal branch in the PLV branch of the RCA. Continue cardiac medication regimen with Aspirin, Effient, pravastatin, fenofibrate lisinopril and metoprolol Type 2 [id number] diabetes mellitus with hyperglycemia. Hemoglobin AIc 7.4%, patient discharged home on Glucophage 500 mg twice a day. Hypertension. Monitor vital signs and continue daily medication regimen with lisinopril and metoprolol. Hyperlipidemia. Continue daily medication regimen with fenofibrate and atorvastatin. Hospital Course: Patient is a very pleasant 47-year-old male with a past medical history of type 2 diabetes mellitus, hypertension, and hyperlipidemia. He presented to the emergency department with a chief complaint of chest pain. Patient reports while resting comfortably in his recliner he suddenly developed a pressure-like pain to his midsternal chest which radiated into his left arm associated by shortness of breath and nausea. Patient has strong family history of sudden cardiac with his father dying at the age of 37 from a massive MD. Patient underwent full evaluation in the emergency department. CBC, CMP, and coags are unremarkable. D-dimer negative at 0.23. Troponin 0.027. EKG showing sinus mechanism at 82 bpm with no noted showing no signs of acute ischemia. Chest x- ray negative for acute cardiopulmonary process. Patient admitted under our services with consultation to cardiology. Troponins trended resulting in 0.027, 0.075, and 0.076. Patient was started on heparin and taken for cardiac cath on 05/23/22 where he underwent successful stenting of the proximal LAD. Cardiology recommending dual antiplatelet therapy for the next 12 months and recommending patient follow-up in office to further discussed staged percutaneous stenting as patient has additional lesions involving the large diagonal branch in the PLV branch of the RCA. Echocardiogram completed revealing EF of 55-60% with mildly enlarged right ventricle. Patient is medically stable for discharge at this time. Patient being discharged home on dual antiplatelet therapy and recommended to continue for an additional 12 months. Patient also being discharged home on metformin 500 mg twice a day secondary to elevated A1c of 7.4%. Patient recommended to follow up outpatient with PCP in 1-2 days and cardiology in 1 week. Physical exam: Patient seen and fully evaluated at the bedside this morning. Patient doing well and denies having any complaints at this time. Cardiac cath site to right wrist intact showing no signs of bleeding, drainage, or hematoma. Patient denies having any numbness or tingling or experiencing any further episodes of chest pain or discomfort. Patient is medically stable for discharge home. Vital signs reviewed and stable. General: Nontoxic, no distress and appears stated age. Derm: Skin warm and dry, normal coloration for ethnicity. Head: Atraumatic, normocephalic and symmetric. Eyes: EOMs intact, no lid lag, and anicteric sclera Mouth: no lip lesions, mucus membranes moist Cardiovascular: regular rate and rhythm with normal S1S2, no murmur, positive posterior tibial pulses bilaterally, and cap refill < 2 seconds. Lungs: Respirations even, regular, and unlabored on room air. Lungs CTA bila terally, no rhonchi, no rales, no wheezing, and no accessory muscle usage. Abdominal: soft, nontender to palpation, no guarding, no appreciable organomegaly Ext: ROM intact. No gross muscle atrophy, no edema, no contractures Neuro: Speech clear, face symmetrical and CN II-XII grossly intact with no noted focal neuro deficits Psych: Alert and oriented to person, place, time, and situation. Appropriate and pleasant affect. A total of 32 minutes of time were spent preparing this complex discharge summary. Pt was discharged on 05/24/22 at 4:36 PM. I reviewed the documentation as provided by the NA above, who is the original author of this note. I agree with the documented assessment and plan, with the following changes: none Patient Condition at Discharge: Stable Plan - Discharge Summary Discharge Rx Participant: No New Discharge Prescriptions: New Prasugrel [Effient] 10 mg PO DAILY #90 tab Metoprolol Tartrate [Lopressor] 25 mg PO BID #60 tab metFORMIN HCL [Glucophage] 500 mg PO BID 30 Days #60 tab Aspirin [Adult Low Dose Aspirin EC] 81 mg PO DAILY #90 tab Nitroglycerin Sl Tabs [Nitrostat] 0.4 mg SUBLINGUAL Q5M PRN #25 tab PRN Reason: Chest Pain Continue lisinopriL [Zestril] 20 mg PO DAILY Pravastatin Sodium [Pravachol] 40 mg PO HS Fenofibrate 160 mg PO HS Discharge Medication List Fenofibrate 160 mg PO HS 05/22/22 [History] Pravastatin Sodium [Pravachol] 40 mg PO HS 05/22/22 [History] lisinopriL [Zestril] 20 mg PO DAILY 05/22/22 [History] Aspirin [Adult Low Dose Aspirin EC] 81 mg PO DAILY #90 tab 05/24/22 [Rx] Metoprolol Tartrate [Lopressor] 25 mg PO BID #60 tab 05/24/22 [Rx] Nitroglycerin Sl Tabs [Nitrostat] 0.4 mg SUBLINGUAL Q5M PRN #25 tab 05/24/22 [Rx] Prasugrel [Effient] 10 mg PO DAILY #90 tab 05/24/22 [Rx] metFORMIN HCL [Glucophage] 500 mg PO BID 30 Days #60 tab 05/24/22 [Rx] Follow up Appointment(s)/Referral(s): Conner Solis MD [STAFF PHYSICIAN] - 06/03/22 5:00 pm Konrad Rangel MD [Primary Care Provider] - 1-2 days Patient Instructions/Handouts: Heart Catheterization (DC) Activity/Diet/Wound Care/Special Instructions: Hemoglobin A1c was elevated at 7.4%, you are being discharged home on Glucophage 500 mg twice a day as diet currently not controlling previous diagnosis of diabetes. It is important to monitor her blood sugars daily, documented findings and a daily log/sternal and bring with you to your next doctor's appointment. Cardiology Instructions After Cardiac Catheterization with Stent Placement: 1. Aspirin as anti-platelet therapy - Aspirin lessens the chance of heart attack and stroke. It helps prevent blood clots from forming, allowing the blood to flow more easily. Each day, you will take one 81 mg (non-enteric coated) tablet daily. You will be taking aspirin as a lifelong medication. Do not stop unless instructed by your doctor. 2. Anti-platelet Therapy. -In addition to aspirin, you will take ONE of the following anti-platelet medications daily. This will help prevent a clot from forming in your stent: Effient (prasugrel) -You will need to take your anti-platelet medicine every day for 12 months -Please consult your heart doctor before you stop this medicine. -They may want you to continue for a longer period of time. 3. Statins -A statin medication lowers cholesterol levels in the blood. This helps slow the progression of heart disease. - Please take your statin medication as prescribed by your doctor. -You may be taking one of the following statins: Lipitor (atorvastatin) Other Medications: -ACEI/ Angiotensin II Receptor Derrick (Your medication: Lisinopril)- can help your heart work better after a heart attack and decrease the amount of damage from a heart attack -Beta derrick (Your medication: Metoprolol tartrate). Is a medication that protects your heart from stress and can prevent future heart attacks. It can slow your heart rate. It can take weeks for your body to get used to a beta derrick. The dose may need to be changed a few times as your body adjusts Do not stop taking these medicines without talking to your doctor. -Take all other medicines as directed by your doctor. Do not take any extra aspirin or ibuprofen. They can increase your risk of bleeding. Many txxy-bkn-hqhwxos drugs contain aspirin. If you are unsure about what the drug contains, check with your pharmacist before taking it. -For mild discomfort, you may take plain Tylenol (acetaminophen). Follow dose directions, but do not take more than 4,000 mg of acetaminophen in 24 hours. Contact your doctor right away or go to the nearest hospital Emergency Room if you have: -Severe angina or chest pain. (This may be a sign of a problem with your stent.) -Excessive bruising, blood in urine/stool or black tarry stools. Healthy LifeStyle It is important to keep a heart healthy lifestyle. This can improve your long- term health and decrease your risk for heart attacks. -Quitting tobacco: the most important thing you can do to protect your health. -Managing your blood cholesterol, blood pressure, weight, and stress. -The importance of regular exercise. -Heart Healthy Diet: Include more plants in your diet. Eat lots of fresh vegetables and fresh fruits. Eat good fats: plant based oils, avocado, nuts, beans, legumes. Eat more seafood. Limit Meat. Switch to whole grains. -Avoid fried foods and animal fats and processed meats Follow up with [facility], [place] [phone] Discharge Disposition: HOME SELF-CARE
[2022-05-24 16:45] VITALS: BP 129/84; PULSE 87; RESP 15; TEMP 98
[2022-05-24 16:50] LABS: Glucose,Whole Blood 190 mg/dL (70-110)
== END 2022-05-24 18:04 | disposition home or self-care (01) ==
LOC: EC 20:36 → 4SSUR 21:49 → 6NMEDSUR 21:59 → 3SCARD 05-23 02:37
PROVIDERS: ADMIT Internal Medicine; ATTEND Internal Medicine
DX: I21.4 Non-ST elevation (NSTEMI) myocardial infarction (principal); E11.65 Type 2 diabetes mellitus with hyperglycemia; I10 Essential (primary) hypertension; E78.5 Hyperlipidemia, unspecified; E66.9 Obesity, unspecified; F17.210 Nicotine dependence, cigarettes, uncomplicated; I37.1 Nonrheumatic pulmonary valve insufficiency; Z82.49 Family history of ischemic heart disease and other diseases of the circulatory system; Z79.899 Other long term (current) drug therapy; Z68.31 Body mass index [BMI] 31.0-31.9, adult
CPT/HCPCS: 96365; 96366; 99285; 36415; 93005; 93306; 92978; 93458; 85379; 83880; 80053 ×3; 83735; 84484 ×2; 85025 ×3; 85610 ×2; 85730 ×2; 83036; 71046; G0378 ×4; C9600; C1887; C1769 ×2; C1894; C1725 ×2; C1753; C1874; J2250; J2001; J3010; J1644 ×2; J1170; Q9967

== ENCOUNTER 2023-09-04 15:31 | Inpatient (IN) | payer BC, OTHER ==
--- NOTE | 2023-09-04 16:30 | ED ---
General Adult HPI - General Chief complaint: Chest Pain Stated complaint: Chest pain Time Seen by Provider: 09/04/23 15:35 Source: patient, RN notes reviewed, old records reviewed Mode of arrival: EMS Limitations: no limitations - History of Present Illness Initial comments: This is a 48-year-old male who presents to the emergency department the past me dical history significant for a prior cardiac stent diabetes hypertension high cholesterol. Patient comes into the emergency department today from [facility] where he was diagnosed with an NSTEMI. Patient stated he had chest pain earlier this morning went to the hospital the first 2 troponins were negative and third troponin was elevated. Patient states when he came in he had already had an aspirin at home and took 3 nitroglycerin at the hospital and none of which helped his pain but it slowly subsided to the point where he is currently chest pain-free. Patient states he has no symptoms currently - Related Data Home Medications Medication Instructions Recorded Confirmed Fenofibrate 160 mg PO HS 05/22/22 05/22/22 Pravastatin Sodium [Pravachol] 40 mg PO HS 05/22/22 05/22/22 lisinopriL [Zestril] 20 mg PO DAILY 05/22/22 05/22/22 Previous Rx's Medication Instructions Recorded Aspirin [Adult Low Dose Aspirin EC] 81 mg PO DAILY #90 tab 05/24/22 Metoprolol Tartrate [Lopressor] 25 mg PO BID #60 tab 05/24/22 Nitroglycerin Sl Tabs [Nitrostat] 0.4 mg SUBLINGUAL Q5M PRN #25 tab 05/24/22 Prasugrel [Effient] 10 mg PO DAILY #90 tab 05/24/22 metFORMIN HCL [Glucophage] 500 mg PO BID 30 Days #60 tab 05/24/22 Allergies Allergy/AdvReac Type Severity Reaction Status Date / Time No Known Allergies Allergy Verified 09/04/23 15:38 Review of Systems ROS Statement: Those systems with pertinent positive or pertinent negative responses have been documented in the HPI. ROS Other: All systems not noted in ROS Statement are negative. Past Medical History Past Medical History: Hyperlipidemia, Hypertension History of Any Multi-Drug Resistant Organisms: None Reported Past Surgical History: No Surgical Hx Reported Additional Past Surgical History / Comment(s): STENT 05/21 Past Anesthesia/Blood Transfusion Reactions: No Reported Reaction Date of Last Stent Placement:: 05/23/2022 Past Psychological History: No Psychological Hx Reported Smoking Status: Current some day smoker - Past Family History Mother Family Medical History: Coronary Artery Disease (CAD) Father Family Medical History: Coronary Artery Disease (CAD) Additional Family Medical History / Comment(s): at 37 from a "massive heart attack" General Exam - General Exam Comments Initial Comments: GENERAL: Patient is well-developed and well-nourished. Patient is nontoxic and well- hydrated and is in no acute distress. ENT: Neck is soft and supple. No significant lymphadenopathy is noted. Oropharynx is clear. Moist mucous membranes. Neck has full range of motion without eliciting any pain. EYES: The sclera were anicteric and conjunctiva were pink and moist. Extraocular movements were intact and pupils were equal round and reactive to light. Eyelids were unremarkable. PULMONARY: Unlabored respirations. Good breath sounds bilaterally. No audible rales rhonchi or wheezing was noted. CARDIOVASCULAR: There is a regular rate and rhythm without any murmurs gallops or rubs. ABDOMEN: Soft and nontender with normal bowel sounds. SKIN: Skin is clear with no lesions or rashes and otherwise unremarkable. NEUROLOGIC: Patient is alert and oriented x3. Cranial nerves II through XII are grossly intact. Motor and sensory are also intact. Normal speech, volume and content. Symmetrical smile. MUSCULOSKELETAL: Normal extremities with adequate strength and full range of motion. No lower extremity swelling or edema. No calf tenderness. LYMPHATICS: No significant lymphadenopathy is noted PSYCHIATRIC: Normal psychiatric evaluation. Limitations: no limitations Course Vital Signs 09/04/23 15:34 Temperature 97.7 F Pulse Rate 75 Respiratory 16 Rate Blood Pressure 122/88 O2 Sat by Pulse 96 Oximetry Medical Decision Making - Medical Decision Making EKG is interpreted by myself. EKG shows a sinus rhythm at 60 bpm [place] is 180 QRS is 104 QT interval 4 6 QTc is 424. Patient's EKG shows no ST segment ovation or depression. Was pt. sent in by a medical professional or institution (, PA, WARPING MILL OPERATOR, urgent care, hospital, or shelter...) When possible be specific @ -[facility] sent the patient to us Did you speak to anyone other than the patient for history (EMS, parent, family, police, friend...)? What history was obtained from this source @ -I spoke with the ER Dr. Ramirez [facility] Did you review nursing and triage notes (agree or disagree)? Why? @ -I reviewed and agree with nursing and triage notes Were old charts reviewed (outside hosp., previous admission, EMS record, old EKG, old radiological studies, urgent care reports/EKG's, shelter records)? Report findings @ -I reviewed prior charts that came with the patient as well as prior lab work Differential Diagnosis (chest pain, altered mental status, abdominal pain women, abdominal pain men, vaginal bleeding, weakness, fever, dyspnea, syncope, headache, dizziness, GI bleed, back pain, seizure, CVA, palpatations, mental health, musculoskeletal)? @ -Differential Chest Pain: Stable Angina, Unstable Angina, STEMI, NSTEMI Aortic Dissection, Pneumothorax, Musculoskeletal, Esophageal Spasm GERD, Cholecystitis, Pancreatitis, Zoster, this is not meant to be an all-inclusive list. EKG interpreted by me (3pts min.). @ -As above X-rays interpreted by me (1pt min.). @ -None done CT interpreted by me (1pt min.). @ -None done U/S interpreted by me (1pt. min.). @ -None done What testing was considered but not performed or refused? (CT, X-rays, U/S, labs)? Why? @ -None What meds were considered but not given or refused? Why? @ -None Did you discuss the management of the patient with other professionals (professionals i.e. , PA, WARPING MILL OPERATOR, lab, RT, psych nurse, licensed social worker, bow stapler, teacher, special officer automat, case making machine operator)? Give summary @ -I spoke with Because she agreed to admit the patient I admitted the patient and I consult cardiology nt Was smoking cessation discussed for >3mins.? @ -No Was critical care preformed (if so, how long)? @ -No Were there social determinants of health that impacted care today? How? (Homelessness, low income, unemployed, alcoholism, drug addiction, transportation, low edu. Level, literacy, decrease access to med. care, shelter, rehab)? @ -No Was there de-escalation of care discussed even if they declined (Discuss DNR or withdrawal of care, Hospice)? DNR status @ -No What co-morbidities impacted this encounter? (DM, HTN, Smoking, COPD, CAD, Cancer, CVA, ARF, Chemo, Hep., AIDS, mental health diagnosis, sleep apnea, morbid obesity)? @ -None Was patient admitted / discharged? Hospital course, mention meds given and route, prescriptions, significant lab abnormalities, going to OR and other pertinent info. @ -Patient had an elevated troponin EKG was normal and patient was chest pain- free at this time I admitted the patient and wrote admitting orders and continue the heparin and I consult to cardiology Undiagnosed new problem with uncertain prognosis? @ -No Drug Therapy requiring intensive monitoring for toxicity (Heparin, Nitro, Insulin, Cardizem)? @ -No Were any procedures done? @ -No Diagnosis/symptom? @ -NSTEMI Acute, or Chronic, or Acute on Chronic? @ -Acute Uncomplicated (without systemic symptoms) or Complicated (systemic symptoms)? @ -Complicated Side effects of treatment? @ -No Exacerbation, Progression, or Severe Exacerbation? @ -No Poses a threat to life or bodily function? How? (Chest pain, [place], HI, pneumonia, PE, COPD, DKA, ARF, appy, cholecystitis, CVA, Diverticulitis, Homicidal, Suicidal, threat to staff... and all critical care pts) @ -This could lead to a massive HI and morbidity or mortality Disposition Clinical Impression: Acute non-ST elevation myocardial infarction (NSTEMI) Disposition: ADMITTED IP TO THIS HOSP Referrals: Konrad Rangel MD [Primary Care Provider] - 1-2 days Time of Disposition: 16:36
[2023-09-04] MEDS ORDERED: NITROGLYCERIN SL TABS 0.4 MG TAB SUBLINGUAL PRN (16:36)
[2023-09-04] MEDS: HEPARIN SOD,PORK IN 0.45% NACL 25,000 UNIT in 0.45% NACL 1 250ML.BAG IV SCH (17:12)
[2023-09-04] MEDS: METOPROLOL SUCCINATE (ER) 25 MG TAB.ER.24H PO STA (17:46)
[2023-09-04] MEDS: NITROGLYCERIN OINT 1 INCH/GM PACKET TOPICAL SCH (19:10)
[2023-09-05] MEDS: HEPARIN SODIUM 1,000 UN/ML (10ML VL) IV PRN (00:13)
[2023-09-05 06:04] LABS: Glucose,Whole Blood 93 mg/dL (70-110)
[2023-09-05] MEDS ORDERED: HEPARIN SODIUM,PORCINE 10,000 UNIT in SODIUM CHLORIDE 0.9% 1,000 ML IRRIGATION PRN (07:00)
[2023-09-05] MEDS ORDERED: HEPARIN SODIUM,PORCINE (1 ML) 2,500 UNIT in SODIUM CHLORIDE 0.9% 250 ML IRRIGATION PRN (07:00)
[2023-09-05] MEDS: ASPIRIN 325 MG TAB PO SCH (07:42)
[2023-09-05] MEDS: METOPROLOL SUCCINATE (ER) 25 MG TAB.ER.24H PO SCH (07:42)
[2023-09-05] MEDS: lisinopriL 20 MG TAB PO SCH (08:18)
[2023-09-05] MEDS: ASPIRIN 81 MG PO SCH (08:18)
[2023-09-05 09:42] LABS: Basophils % (A) 1 %; Eosinophils # (A) 0.2 k/uL (0-0.7); Eosinophils % (A) 3 %; HCT 43.4 % (39.0-53.0); HGB 14.5 gm/dL (13.0-17.5); Lymphocytes # (A) 2.7 k/uL (1.0-4.8); Lymphocytes % (A) 33 %; MCH 28.4 pg (25.0-35.0); MCHC 33.4 g/dL (31.0-37.0); Mean Platelet Volume 7.8; Monocytes # (A) 0.5 k/uL (0-1.0); Monocytes % (A) 6 %; Neutrophils # (A) 4.4 k/uL (1.3-7.7); Neutrophils % (A) 55 %; Platelet Count 205 k/uL (150-450); RDW 13.4 % (11.5-15.5)
[2023-09-05 09:54] LABS: African American GFR (CKD) >90 (>60 ml/min/1.73 sqM); Anion Gap 5 mmol/L; Blood Urea Nitrogen 17 mg/dL (9-20); Carbon Dioxide 24 mmol/L (22-30); Chloride 112 mmol/L (98-107); Glucose 88 mg/dL (74-99); Non-African American GFR(CKD) >90 (>60 ml/min/1.73 sqM); Potassium 4.4 mmol/L (3.5-5.1); Sodium 141 mmol/L (137-145)
[2023-09-05] MEDS ORDERED: ALPRAZolam 0.5 MG TAB PO PRN (09:58)
[2023-09-05] MEDS ORDERED: ASPIRIN 325 MG TAB PO STA (09:58)
[2023-09-05] MEDS ORDERED: NITROGLYCERIN SL TABS 0.4 MG TAB SUBLINGUAL PRN ×2 (09:58→19:15)
[2023-09-05] MEDS ORDERED: ALPRAZolam 0.25 MG TAB PO PRN (09:58)
[2023-09-05] MEDS: SODIUM CHLORIDE 0.9% 1,000 ML in EMPTY BAG 1 BAG IV SCH ×2 (10:22→20:55)
[2023-09-05] MEDS: ATORVASTATIN 80 MG TAB PO STA (10:22)
--- NOTE | 2023-09-05 10:47 | P.CRDCN ---
History of Present Illness History of present illness: HISTORY OF PRESENT ILLNESS: This is a 48-year-old male with a past medical history significant for coronary artery disease with previous stenting, hypertension, hyperlipidemia, nicotine d ependence. Patient follows in the office with Dr. Solis. We have been asked to see the patient in consultation for elevated troponins. Patient examined at the bedside. Patient initially presented to [facility] for evaluation. Patient states his chest pain started yesterday morning. His initial troponins at [place] were normal and then subsequent troponins were elevated and he was transferred to [facility] for further evaluation. He was started on IV heparin. He denies any chest pain or pressure at the time of examination. He denies any shortness of breath. Vital signs are stable. DIAGNOSTICS: - EKG reveals sinus mechanism with no signs of acute ischemia - Laboratory data: Troponin 1.470. 1.990. 1.790. - Current home cardiac medications include lisinopril 20 mg daily, metoprolol tartrate 25 mg twice a day, Lipitor 80 mg at night, and aspirin 81 mg daily. - Most recent echocardiogram obtained in April 2022 reveals ejection fraction 55 to 60% with mildly enlarged right ventricle - Cardiac catheterization history: April 2022 revealing critical disease involving the proximal LAD with a thrombotic lesion appeared to be in the range of 99.9%. Patient underwent stenting of the LAD. Patient still has a least intermediate lesion involving a large diagonal branch. Intermediate lesion also involving the PLV branch of the RCA which is also a large-caliber vessel. REVIEW OF SYSTEMS: At the time of my exam: CONSTITUTIONAL: Denies fever or chills. HEENT: Denies blurred vision, vision changes, or eye pain. Denies hemoptysis CARDIOVASCULAR: Denies chest pain. Denies orthopnea. Denies PND. Denies palpitations RESPIRATORY: Denies shortness of breath. GASTROINTESTINAL: Denies abdominal pain. Denies nausea or vomiting. HEMATOLOGIC: Denies bleeding disorders. GENITOURINARY: Denies any blood in urine. SKIN: Denies pruitis. Denies rash. PHYSICAL EXAM: VITAL SIGNS: Reviewed. GENERAL: Well-developed in no acute distress. HEENT: Head is normocephalic. Pupils are equal, round. Sclerae anicteric. Mucous membranes of the mouth are moist. Neck supple. No JVD or thyromegaly LUNGS: Respirations even and unlabored. Lungs essentially clear to auscultation bilaterally. HEART: Regular rate and rhythm. S1 and S2 heard. ABDOMEN: Soft. Nondistended. Nontender. EXTREMITIES: Normal range of motion. No clubbing or cyanosis. Peripheral pulses intact. No lower extremity edema NEUROLOGIC: Awake and alert. Oriented x 3. ASSESSMENT: Non-STEMI Coronary artery disease with previous stenting of the LAD Known intermediate lesion of the PLV branch of the RCA Hypertension Hyperlipidemia Nicotine dependence PLAN: Obtain 2D echo to assess cardiac structure and function Continue IV heparin Resume home cardiac medications Patient to undergo cardiac catheterization this afternoon versus tomorrow morning with Dr. Solis Further recommendations pending patient course Nurse practitioner note has been reviewed by physician. Signing provider agrees with the documented findings, assessment, and plan of care documented by MARKETING PROGRAMS SPECIALIST as a scribe. Past Medical History Past Medical History: Hyperlipidemia, Hypertension History of Any Multi-Drug Resistant Organisms: None Reported Past Surgical History: No Surgical Hx Reported Additional Past Surgical History / Comment(s): STENT 05/21 Past Anesthesia/Blood Transfusion Reactions: No Reported Reaction Date of Last Stent Placement:: 05/23/2022 Past Psychological History: No Psychological Hx Reported Smoking Status: Former smoker Past Drug Use History: None Reported - Past Family History Mother Family Medical History: Coronary Artery Disease (CAD) Father Family Medical History: Coronary Artery Disease (CAD) Additional Family Medical History / Comment(s): at 37 from a "massive heart attack" Medications and Allergies Home Medications Medication Instructions Recorded Confirmed Type Fenofibrate 160 mg PO HS 05/22/22 09/04/23 History lisinopriL [Zestril] 20 mg PO DAILY 05/22/22 09/04/23 History Aspirin [Adult Low Dose Aspirin EC] 81 mg PO DAILY #90 tab 05/24/22 09/04/23 Rx Metoprolol Tartrate [Lopressor] 25 mg PO BID #60 tab 05/24/22 09/04/23 Rx Atorvastatin [Lipitor] 80 mg PO HS 09/04/23 09/04/23 History Dulaglutide [Trulicity] 1.5 mg SQ TU 09/04/23 09/04/23 History Allergies Allergy/AdvReac Type Severity Reaction Status Date / Time No Known Allergies Allergy Verified 09/04/23 17:37 Physical Exam Vitals: Vital Signs Temp Pulse Pulse Resp BP BP Pulse Ox 09/05/23 04:00 97.9 F 70 18 103/65 94 L 09/05/23 02:00 75 18 09/05/23 00:00 98.2 F 75 18 109/75 96 09/04/23 22:13 97.6 F 82 18 124/73 97 09/04/23 22:11 82 18 09/04/23 20:59 75 18 129/99 98 09/04/23 19:20 98 F 78 18 116/90 95 09/04/23 18:45 74 16 109/74 09/04/23 18:15 67 18 106/67 95 09/04/23 17:34 68 16 107/64 95 09/04/23 17:15 77 18 100/65 96 09/04/23 15:34 97.7 F 75 16 122/88 96 Intake and Output 09/04/23 09/05/23 09/05/23 22:59 06:59 14:59 Intake Total 66.833 Balance 66.833 Intake: Intake, IV Titration 66.833 Amount Heparin Sod,Pork in 0.45% 66.833 NaCl 25,000 unit In 0.45 % NaCl 1 250ml.bag @ 11. 134 UNITS/KG/HR 10 mls/hr IV .Q24H [facility]1983 Rx#: [id number] Other: Voiding Method Toilet Toilet # Voids 0 1 Weight 89.811 kg Results 09/05/23 09:04 09/05/23 09:04 Cardiac Enzymes 09/04/23 09/04/23 09/04/23 Range/Units 16:19 18:52 22:43 Troponin I 1.470 H* 1.990 H* 1.790 H* (0.000-0.034) ng/mL Coagulation 09/04/23 Range/Units 22:43 APTT 28.5 (22.0-30.0) sec Current Medications Generic Name Dose Route Start Last Admin Trade Name Freq PRN Reason Stop Dose Admin Aspirin 81 mg 09/05/23 09:00 Aspirin 81 Mg PO DAILY [facility] Heparin Sodium (Porcine) 0 unit 09/04/23 23:49 09/05/23 00:13 Heparin Sodium 1,000 Un/Ml (10ml Vl) IV 4,000 unit PER PROTOCOL PRN Administration Low PTT Protocol Heparin Sodium/Sodium Chloride 250 mls @ 10 mls/hr 09/04/23 16:45 09/04/23 23:53 25,000 unit/ Sodium Chloride IV 14.134 units/kg/hr .Q24H BASIL 12.694 mls/hr Titration Protocol 11.134 UNITS/KG/HR Metoprolol Succinate 25 mg 09/05/23 09:00 09/05/23 07:42 Metoprolol Succinate (Er) 25 Mg Tab.Er.24h PO 25 mg DAILY BASIL Administration Nitroglycerin 0.4 mg 09/04/23 16:36 Nitroglycerin Sl Tabs 0.4 Mg Tab SUBLINGUAL Q5M PRN Chest Pain Intake and Output 09/04/23 09/05/23 09/05/23 22:59 06:59 14:59 Intake Total 66.833 Balance 66.833 Intake: Intake, IV Titration 66.833 Amount Heparin Sod,Pork in 0.45% 66.833 NaCl 25,000 unit In 0.45 % NaCl 1 250ml.bag @ 11. 134 UNITS/KG/HR 10 mls/hr IV .Q24H [facility] Rx#: [id number] Other: Voiding Method Toilet Toilet # Voids 0 1 Weight 89.811 kg
--- NOTE | 2023-09-05 12:55 | CA ---
Transthoracic Echo Report Name: Wily Funes Age: 48 Gender: M : 1975 Exam Date: 09/05/2023 11:35 Exam Location: [facility] Ht (in): 69 Wt (lb): 198 Ordering Physician: Allegra Flanagan Attending/Referring Phys: [id number], Masha Heating Equipment Installer Shira Rich RDCS Procedure CPT: Indications: NSTEMI, LV Function Cardiac Hx: Technical Quality: Fair Contrast 1: Total Dose (mL): Contrast 2: Total Dose (mL): MEASUREMENTS (Male / Female) Normal Values 2D ECHO LV Diastolic Diameter PLAX 4.0 cm 4.2 - 5.9 / 3.9 - 5.3 cm LV Systolic Diameter PLAX 2.6 cm IVS Diastolic Thickness 1.4 cm 0.6 - 1.0 / 0.6 - 0.9 cm LVPW Diastolic Thickness 1.3 cm 0.6 - 1.0 / 0.6 - 0.9 cm LV Relative Wall Thickness 0.7 RV Internal Dim ED PLAX 4.3 cm LA Volume 53.8 cm??? 18 - 58 / 22 - 52 cm??? LA Volume Index 25.5 cm???/m??? 16 - 28 cm???/m??? M-MODE Aortic Root Diameter MM 3.2 cm LA Systolic Diameter MM 4.1 cm LA Ao Ratio MM 1.3 AV Cusp Separation MM 1.9 cm DOPPLER AV Peak Velocity 143.0 cm/s AV Peak Gradient 8.2 mmHg AV Mean Velocity 99.6 cm/s AV Mean Gradient 4.4 mmHg AV Velocity Time Integral 28.1 cm LVOT Peak Velocity 124.6 cm/s LVOT Peak Gradient 6.2 mmHg LVOT Velocity Time Integral 26.9 cm MV Area PHT 3.6 cm??? Mitral E Point Velocity 109.9 cm/s Mitral A Point Velocity 70.0 cm/s Mitral E to A Ratio 1.6 MV Deceleration Time 207.9 ms MV E' Velocity 8.1 cm/s Mitral E to MV E' Ratio 13.5 TR Peak Velocity 228.4 cm/s TR Peak Gradient 20.9 mmHg Right Ventricular Systolic Press 25.1 mmHg FINDINGS Left Ventricle Mildly increased left ventricular wall thickness. Left ventricular cavity size normal. Normal left ventricular systolic function with no obvious regional wall motion abnormalities. Left ventricular ejection fraction is estimated at 55- 60%. Right Ventricle Mild right ventricular dilatation. Right ventricular systolic pressure within normal limits. Right Atrium Normal right atrial size. Left Atrium Mildly increased left atrial area. Mitral Valve Structurally normal mitral valve. No mitral stenosis or prolapse.trace to mild mitral regurgitation. Aortic Valve Trileaflet aortic valve. No aortic valve stenosis or regurgitation. Tricuspid Valve Structurally normal tricuspid valve. Trace to mild tricuspid regurgitation. Pulmonic Valve Structurally normal pulmonic valve. Pericardium No pericardial effusion. Aorta Normal size aortic root and proximal ascending aorta. CONCLUSIONS 1. Normal left ventricle size and systolic function 2. Trace to mild mitral and tricuspid regurgitation Previewed by: Dr. Elissa Bates MD (Electronically Signed) Final Date: 05 September 2023 12:54
[2023-09-05] MEDS ORDERED: LACTULOSE 20 GM/30 ML CUP PO PRN (13:24)
[2023-09-05] MEDS ORDERED: CALCIUM CARBONATE 500 MG CHEWABLE PO PRN (13:24)
[2023-09-05] MEDS ORDERED: MELATONIN 3 MG TABLET PO PRN (13:24)
[2023-09-05] MEDS ORDERED: ONDANSETRON 4 MG/2 ML VIAL IVP PRN (13:24)
[2023-09-05] MEDS ORDERED: NALOXONE 0.4 MG/ML 1 ML VIAL IV PRN (13:24)
[2023-09-05] MEDS ORDERED: DEXTROSE 50% SYRINGE 50 ML IVP PRN ×2 (13:25)
--- NOTE | 2023-09-05 13:28 | P.HPIM ---
History of Present Illness H&P Date: 09/05/23 Chief Complaint: Chest pain This is a pleasant 48-year-old patient who follows with, Margot Rasmussen. 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 Had a stent placed in April 2022. Has been doing reasonably well. Yesterday while working on his computer he developed chest pain. Progressively got worse. Decided to go to the ER locally. Was given 3 nitroglycerin. Pain subsided after some time. Patient was short of breath. Broke out in a cold sweat. No dizziness no lightheadedness. Patient was then transferred down here. Initial troponin is 1.4. Cardiology was informed.. Placed on IV heparin. This morning remains on IV heparin. No chest pain. Pending cardiac cath eterization. at the bedside. Review of systems: GEN.: Tired EYES: None HEENT: None NECK: None RESPIRATORY: As above ne CARDIOVASCULAR: [As above GASTROINTESTINAL: None GENITOURINARY: None MUSCULOSKELETAL: None LYMPHATICS: None HEMATOLOGICAL: None PSYCHIATRY: None NEUROLOGICAL: None Social history: Patient works at [employer]. . Cut back his smoking to about half a pack a week. Physical examination: VITAL SIGNS: 98.1, 74, 16, 112/70, 97% room air GENERAL: BMI 29.2, reclining bed awake not in distress. EYES: Pupils equal. Conjunctiva jake l. HEENT: External appearance of nose and ears normal, oral cavity grossly normal. NECK: JVD not raised; masses not palpable. HEART: First and second heart sounds are normal; no edema. LUNGS: Respiratory rate normal; decreased breath sounds. ABDOMEN: Soft, nontender, liver spleen not palpable, no masses palpable. PSYCH: Alert and oriented x3; mood and affect jake l. MUSCULOSKELETAL:No Clubbing/cyanosis;muscles-grossly intact NEUROLOGICAL: Cranial nerves grossly intact; no facial asymmetry, power and sensation grossly intact. LYMPHATICS: No lymph nodes palpable in the axilla and neck INVESTIGATIONS, reviewed in the clinical context: September 05: White count 8 hemoglobin 14.5 platelets 205 sodium 141 potassium 4.4 creatinine 0.88 Troponin I 1.47, 1.99, 1.7 EKG tracing personally reviewed by me-normal sinus rhythm. Assessment plan: -Acute non-ST elevation myocardial infarction. Positive troponins. Patient has known CAD. Follows with Dr. Solis IV heparin. Lopressor. Aspirin. Pending cardiac catheterization -IV heparin monitoring Follow PTT -Diabetes mellitus type 2 Trulicity. Follow Accu-Cheks with sliding scale. -Hyperlipidemia Lipitor -Essential hypertension Lopressor 25 mg twice daily. Lisinopril. -Chronic nicotine dependence, cigarette smoker Nicotine patch nicotine Care was discussed with the patient at the bedside. Questions answered. Follow-up with cardiology Past Medical History Past Medical History: Hyperlipidemia, Hypertension History of Any Multi-Drug Resistant Organisms: None Reported Past Surgical History: No Surgical Hx Reported Additional Past Surgical History / Comment(s): STENT 05/21 Past Anesthesia/Blood Transfusion Reactions: No Reported Reaction Date of Last Stent Placement:: 05/23/2022 Past Psychological History: No Psychological Hx Reported Smoking Status: Former smoker Past Drug Use History: None Reported - Past Family History Mother Family Medical History: Coronary Artery Disease (CAD) Father Family Medical History: Coronary Artery Disease (CAD) Additional Family Medical History / Comment(s): at 37 from a "massive heart attack" Medications and Allergies Home Medications Medication Instructions Recorded Confirmed Type Fenofibrate 160 mg PO HS 05/22/22 09/04/23 History lisinopriL [Zestril] 20 mg PO DAILY 05/22/22 09/04/23 History Aspirin [Adult Low Dose Aspirin EC] 81 mg PO DAILY #90 tab 05/24/22 09/04/23 Rx Metoprolol Tartrate [Lopressor] 25 mg PO BID #60 tab 05/24/22 09/04/23 Rx Atorvastatin [Lipitor] 80 mg PO HS 09/04/23 09/04/23 History Dulaglutide [Trulicity] 1.5 mg SQ TU 09/04/23 09/04/23 History Allergies Allergy/AdvReac Type Severity Reaction Status Date / Time No Known Allergies Allergy Verified 09/04/23 17:37 Physical Exam Vitals: Vital Signs Temp Pulse Pulse Resp BP BP Pulse Ox 09/05/23 08:00 98.1 F 74 16 112/70 97 09/05/23 04:00 97.9 F 70 18 103/65 94 L 09/05/23 02:00 75 18 09/05/23 00:00 98.2 F 75 18 109/75 96 09/04/23 22:13 97.6 F 82 18 124/73 97 09/04/23 22:11 82 18 09/04/23 20:59 75 18 129/99 98 09/04/23 19:20 98 F 78 18 116/90 95 09/04/23 18:45 74 16 109/74 09/04/23 18:15 67 18 106/67 95 09/04/23 17:34 68 16 107/64 95 09/04/23 17:15 77 18 100/65 96 09/04/23 15:34 97.7 F 75 16 122/88 96 Intake and Output 09/04/23 09/05/23 09/05/23 22:59 06:59 14:59 Intake Total 66.833 133.645 Balance 66.833 133.645 Intake: Intake, IV Titration 66.833 133.645 Amount Heparin Sod,Pork in 0.45% 66.833 133.645 NaCl 25,000 unit In 0.45 % NaCl 1 250ml.bag @ 11. 134 UNITS/KG/HR 10 mls/hr IV .Q24H [facility] Rx#: [id number] Other: Voiding Method Toilet Toilet Toilet # Voids 0 1 Weight 89.811 kg Results CBC & Chem 7: 09/05/23 09:04 09/05/23 09:04 Labs: Abnormal Lab Results - Last 24 Hours (Table) 09/04/23 09/04/23 09/04/23 Range/Units 16:19 18:52 22:43 APTT (22.0-30.0) sec Chloride (98-107) mmol/L Troponin I 1.470 H* 1.990 H* 1.790 H* (0.000-0.034) ng/mL 09/05/23 09/05/23 Range/Units 09:04 09:04 APTT 40.3 H (22.0-30.0) sec Chloride 112 H (98-107) mmol/L Troponin I (0.000-0.034) ng/mL Thrombosis Risk Factor Assmnt - Choose All That Apply Each Factor Represents 1 point: Age 41-60 years Thrombosis Risk Factor Assessment Total Risk Factor Score: 1 Thrombosis Risk Factor Assessment Level: Low Risk
[2023-09-05] MEDS: INSULIN ASPART (NovoLOG) 100 UNIT/ML VIAL SQ SCH (13:32)
[2023-09-05] MEDS: NICOTINE 7MG/24HR PATCH TRANSDERM SCH (13:35)
[2023-09-05 15:58] LABS: Chol/HDL Ratio 4.22 Ratio; LDL Cholesterol,Calculated 51.6 mg/dL (0.0-131.0)
[2023-09-05 16:58] LABS: Glucose,Whole Blood 78 mg/dL (70-110)
[2023-09-05] MEDS: IV FLUID CONTINUATION 1,000 ML IV ONE (17:14)
[2023-09-05] MEDS ORDERED: HEPARIN SODIUM 1,000 UN/ML (10ML VL) ONE (17:24)
[2023-09-05] MEDS: MIDAZOLAM 2 MG/2 ML VIAL IVP ONE (17:41)
[2023-09-05] MEDS: LIDOCAINE 1% INJ 10MG/ML (5 ML VIAL-PF) SQ ONE (17:45)
[2023-09-05] MEDS: VERAPAMIL SYRINGE (5 MG/10 ML) INTRAARTER ONE (17:46)
[2023-09-05] MEDS: HEPARIN SODIUM 1,000 UN/ML (10ML VL) IV ONE (18:08)
[2023-09-05] MEDS ORDERED: TICAGRELOR 90 MG TAB ONE (18:18)
[2023-09-05] MEDS: TICAGRELOR 90 MG TAB PO ONE (18:18)
[2023-09-05] MEDS: IOPAMIDOL-300 100ML BTL INJ ONE (18:21)
[2023-09-05] MEDS ORDERED: niCARdipine 25 MG/10 ML VIAL ONE (18:31)
[2023-09-05] MEDS: NITROGLYCERIN 1000MCG/10ML SYRINGE INTRACORON ONE (18:37)
[2023-09-05] MEDS: niCARdipine Syringe (1,000 mcg/10 mL) INTRACORON ONE (18:37)
[2023-09-05] MEDS ORDERED: fentaNYL (PF) 50 MCG/ML 2 ML AMP ONE (18:49)
[2023-09-05] MEDS: fentaNYL (PF) 50 MCG/1 ML VIAL IVP ONE (18:51)
[2023-09-05] MEDS ORDERED: RX INFO: IV CONTRAST WAS GIVEN 1 EACH MISC MISCELLANE PRN (19:15)
[2023-09-05] MEDS ORDERED: MAG HYDROX/AL HYDROX/SIMETH 30 ML CUP PO PRN (19:15)
[2023-09-05] MEDS ORDERED: ATROPINE SULFATE 0.1 MG/ML 10ML SYRINGE IV PRN (19:15)
[2023-09-05] MEDS ORDERED: ZOLPIDEM 5 MG TAB PO PRN (19:15)
--- NOTE | 2023-09-05 19:25 | P.PCN ---
Date of Procedure: 09/05/23 Operative Findings: CARDIAC CATHETERIZATION AND PERCUTANEOUS CORONARY INTERVENTION PERFORMING PHYSICIAN: Conner Solis MD, [facility] PROCEDURE PERFORMED: 1. Selective right and left coronary angiogram 2. Left heart catheterization 3. Successful stenting of the first diagonal branch using 2.5 x 18 mm Xience BRYCE which was postdilated using 2.75 mm noncompliant balloon with an excellent angiographic results 4. Successful stenting of the PLV branch of RCA using 3.0 x 18 mm Xience BRYCE which post dilated using 3.25 mm noncompliant balloon with an excellent angiographic results 5. Adjunctive use of an intravascular imaging and Doppler wire 6. Ultrasound guided access of the right radial artery INDICATION: Acute non-ST elevation myocardial infarction in this 48-year-old gentleman who is known to have CAD with prior stenting of the LAD. COMPLICATION: None APPROACH: Right radial artery LEVEL OF SEDATION: Moderate with the sedation time off 81 minutes PROCEDURE DESCRIPTION: After obtaining an informed consent the patient was brought to the cardiac tanbark laborer. The right radial artery was cannulated using puncture technique under ultrasound guidance the micropuncture wire passed easily then I placed a 6- Persian 11 cm sheath at the right radial artery. At that point I did give the patient 2 mg of verapamil intra-arterial. Selective right and left coronary angiogram performed using JR4 and JL 3.5 catheters. After that I did Doppler wire measurement of the LAD and then I did intervene on the diagonal and RCA with the procedure was completed was no complication. Please note that left heart catheterization was performed using the JR4 catheter. SELECTIVE CORONARY ANGIOGRAM: The right coronary artery: Large-caliber vessel and a dominant vessel. The RCA proximally appeared to be normal. The mid RCA has mild to moderate disease appears to be in the range of 30-40%. The RCA distally appeared to have mild disease and bifurcates into PDA and PLV branches. The PDA branch appeared to have mild disease only and the PLV branch has a focal lesion appears to be in the range of 80%. Left main: Has mild disease only. Bifurcates into an LCx and LAD The left circumflex: Large-caliber vessel nondominant vessel. The LCx proximally appeared to be normal and gives rises into an OM1 which has [id number] disease with no high-grade stenosis and the circumflex continue after that as a small to medium caliber vessel in the AV groove The left anterior descending artery: The proximal LAD appeared to have mild disease only. Then the LAD after that is a stented just before the bifurcation into a large diagonal branch which has critical lesion and the LAD distal to the stent appeared to have an intermediate lesion documented to be [id number] by Doppler wire HEMODYNAMICS: The LVEDP was about 10 mmHg was no significant gradient across aortic valve PCI OF THE Diag and RCA: Anticoagulation was initiated using heparin with continuous ACT monitoring. At the beginning we decided to do Doppler wire measurement of the LAD to assess if the LAD lesion is flow-limiting lesion or no. After zeroing the Doppler wire and equalizing between the Doppler wire and guiding catheter which was JL 3.5 guiding catheter in the left main was engaged and subsequently the LAD was wired. We did iFR and that came in to be at 0.93. I left the Doppler wire into place and I used a run-through wire to wire the diagonal branch of the LAD. Subsequently I did intravascular imaging of the diagonal and that showed a d iameter around 2.5 mm only. Predilatation was performed using 2.5 mm balloon before I deployed 2.5 x 18 mm stent where the stent was positioned under fluoroscopy guidance and deployed under fluoroscopy guidance. Postdilatation of the stent was performed using 2.75 millimeters noncompliant balloon and then after that I did intravascular imaging again and angiogram and that showed that the stented segment appeared to be expanded and apposed. After that I did intervene on the PLV branch of the right coronary artery. I did engage the RCA using an a.l. 0.75 guiding catheter. I did wire the PLV using a run-through wire. Again intravascular imaging was performed and showed a diameter almost 3 mm. Predilatation was performed using 2.5 mm x 15 mm noncompliant balloon before I deployed 3.0 x 18 mm stent and postoperative using 3.25 mm noncompliant balloon. Again final angiogram showed excellent angiographic results and the procedure was completed was no complication CONCLUSION: #1 Patent stent in the proximal LAD. Intermediate disease involving the mid LAD documented to be [id number] by Doppler wire #2 Critical disease involving a large first diagonal branch of the LAD. I performed successful stenting of the diagonal branch as described above #3 Critical disease involving large LV branch of the RCA. I did perform successful stenting of the LV branch as described above as well #4 Normal left-sided filling pressure POSTPROCEDURE MANAGEMENT: 1. Dual antiplatelet therapy using aspirin and Brilinta for 12 month 2. Aggressive cholesterol control 3. Follow-up with the patient
[2023-09-05 19:55] LABS: Glucose,Whole Blood 110 mg/dL (70-110)
[2023-09-05] MEDS: ATORVASTATIN 80 MG TAB PO SCH (20:56)
[2023-09-05] MEDS: FENOFIBRATE 160 MG TAB PO SCH (20:56)
[2023-09-05] MEDS: METOPROLOL TARTRATE 25 MG TAB PO SCH (20:56)
[2023-09-05] MEDS: ACETAMINOPHEN TAB 325 MG TAB PO PRN (20:56)
[2023-09-05] MEDS: TICAGRELOR 90 MG TAB PO SCH (23:54)
[2023-09-06 06:16] LABS: Glucose,Whole Blood 100 mg/dL (70-110)
[2023-09-06 09:12] VITALS: BP 119/81; PULSE 80; RESP 17; TEMP 97.5
[2023-09-06 10:08] LABS: Basophils % (A) 1 %; Eosinophils # (A) 0.2 k/uL (0-0.7); Eosinophils % (A) 3 %; HCT 39.6 % (39.0-53.0); HGB 13.7 gm/dL (13.0-17.5); Lymphocytes # (A) 1.3 k/uL (1.0-4.8); Lymphocytes % (A) 20 %; MCH 29.5 pg (25.0-35.0); MCHC 34.5 g/dL (31.0-37.0); MCV 85.6 fL (80.0-100.0); Mean Platelet Volume 8.1; Monocytes # (A) 0.4 k/uL (0-1.0); Monocytes % (A) 6 %; Neutrophils # (A) 4.3 k/uL (1.3-7.7); Neutrophils % (A) 69 %; Platelet Count 177 k/uL (150-450); RBC 4.63 m/uL (4.30-5.90); RDW 13.3 % (11.5-15.5); WBC 6.2 k/uL (3.8-10.6)
[2023-09-06 10:32] LABS: ALT 38 U/L (4-49); AST 30 U/L (17-59); African American GFR (CKD) >90 (>60 ml/min/1.73 sqM); Albumin 3.5 g/dL (3.5-5.0); Alkaline Phosphatase 55 U/L (38-126); Anion Gap 6 mmol/L; Blood Urea Nitrogen 15 mg/dL (9-20); Carbon Dioxide 23 mmol/L (22-30); Chloride 112 mmol/L (98-107); Glucose 125 mg/dL (74-99); Non-African American GFR(CKD) >90 (>60 ml/min/1.73 sqM); Potassium 4.1 mmol/L (3.5-5.1); Sodium 141 mmol/L (137-145); Total Bilirubin 0.5 mg/dL (0.2-1.3); Total Protein 5.8 g/dL (6.3-8.2)
[2023-09-06 11:14] VITALS: BMI 29.9
--- NOTE | 2023-09-06 11:22 | P.PN ---
Subjective HISTORY OF PRESENT ILLNESS: This is a 48-year-old male with a past medical history significant for coronary artery disease with previous stenting, hypertension, hyperlipidemia, nicotine dependence. Patient follows in the office with Dr. Solis. We have been asked to see the patient in consultation for elevated troponins. Patient examined at the bedside. Patient initially presented to [facility] for evaluation. Patient states his chest pain started yesterday morning. His initial troponins at [facility] were normal and then subsequent troponins were elevated and he was transferred to [facility] for further evaluation. He was started on IV heparin. He denies any chest pain or pressure at the time of examination. He denies any shortness of breath. Vital signs are stable. DIAGNOSTICS: - EKG reveals sinus mechanism with no signs of acute ischemia - Laboratory data: Troponin 1.470. 1.990. 1.790. - Current home cardiac medications include lisinopril 20 mg daily, metoprolol tartrate 25 mg twice a day, Lipitor 80 mg at night, and aspirin 81 mg daily. - Most recent echocardiogram obtained in April 2022 reveals ejection fraction 55 to 60% with mildly enlarged right ventricle - Cardiac catheterization history: April 2022 revealing critical disease involving the proximal LAD with a thrombotic lesion appeared to be in the range of 99.9%. Patient underwent stenting of the LAD. Patient still has a least intermediate lesion involving a large diagonal branch. Intermediate lesion also involving the PLV branch of the RCA which is also a large-caliber vessel. September 06, 2023 Patient is s/p cardiac catheterization with Dr. Solis. Patient underwent stenting of the first diagonal branch and PLV branch of the RCA. Patient also underwent FFR of the LAD which had intermediate disease in the midportion which was found to be nonflow limiting. The patient states he is feeling much better today. He denies any further episodes of chest pain or pressure. He denies any shortness of breath. Echocardiogram completed revealing ejection fraction 55 to 60%, trace to mild mitral regurgitation and trace to mild tricuspid regu rgitation. Vital signs are stable. PHYSICAL EXAM: VITAL SIGNS: Reviewed. GENERAL: Well-developed in no acute distress. HEENT: Head is normocephalic. Pupils are equal, round. Sclerae anicteric. Mucous membranes of the mouth are moist. Neck supple. No JVD or thyromegaly LUNGS: Respirations even and unlabored. Lungs essentially clear to auscultation bilaterally. HEART: Regular rate and rhythm. S1 and S2 heard. ABDOMEN: Soft. Nondistended. Nontender. EXTREMITIES: Normal range of motion. No clubbing or cyanosis. Peripheral pulses intact. No lower extremity edema NEUROLOGIC: Awake and alert. Oriented x 3. ASSESSMENT: Non-STEMI, status postcardiac catheterization with stenting of the first diagonal branch and PLV branch of the RCA Coronary artery disease with previous stenting of the LAD Known intermediate lesion of the PLV branch of the RCA Hypertension Hyperlipidemia Nicotine dependence PLAN: Continue dual antiplatelet therapy with aspirin and Brilinta Continue high intensity statin Continue additional cardiac medications Patient may be discharged home today from a cardiac standpoint He is to follow-up postdischarge with Dr. Solis Nurse practitioner note has been reviewed by physician. Signing provider agrees with the documented findings, assessment, and plan of care documented by ROUTE SPECIALIST as a scribe. Objective - Vital Signs Vital signs: Vital Signs Temp 97.5 F L 09/06/23 08:00 Pulse 80 09/06/23 08:00 Resp 17 09/06/23 08:00 BP 119/81 09/06/23 08:00 Pulse Ox 96 09/06/23 08:00 FiO2 Intake & Output 09/05/23 09/06/23 09/06/23 18:59 06:59 18:59 Intake Total 423.645 360 Output Total 500 Balance 423.645 -500 360 Weight 91.8 kg 91.8 kg Intake: IV 50 Intake, IV Titration 133.645 Amount Heparin Sod,Pork in 0.45% 133.645 NaCl 25,000 unit In 0.45 % NaCl 1 250ml.bag @ 11. 134 UNITS/KG/HR 10 mls/hr IV .Q24H BASIL Rx#: [id number] Oral 240 360 Output: Urine 500 Other: Voiding Method Incontinent Toilet Toilet # Voids 2 1 - Labs CBC & Chem 7: 09/06/23 09:07 09/06/23 09:07 Labs: Abnormal Lab Results - Last 24 Hours (Table) 09/05/23 09/05/23 09/06/23 Range/Units 09:04 16:29 09:07 APTT 43.8 H (22.0-30.0) sec Chloride 112 H (98-107) mmol/L Glucose 125 H (74-99) mg/dL Total Protein 5.8 L (6.3-8.2) g/dL Triglycerides 173.00 H (0.00-149.00) mg/dL HDL Cholesterol 26.80 L (40.00-60.00) mg/dL
--- NOTE | 2023-09-06 19:41 | P.DS ---
Providers Date of admission: 09/04/23 16:39 Expected date of discharge: 09/06/23 Attending physician: Jerrell Thomas Consults: 09/04/23 16:36 Consult Physician Urgent Consulting Provider: Cristobal Barksdale Consult Reason/Comments: NSTEMI Do you want consulting provider notified?: Yes 09/05/23 19:15 Consult Physician Routine Consulting Provider: Cristobal Barksdale Consult Reason/Comments: Post Interventional patient Do you want consulting provider notified?: Already Contacted Primary care physician: [facility] Course: Chief Complaint: Chest pain This is a pleasant 48-year-old patient who follows with, Margot Rasmussen. 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 Had a stent placed in April 2022. Has been doing reasonably well. Yesterday while working on his computer he developed chest pain. Progressively got worse. Decided to go to the ER locally. Was given 3 nitroglycerin. Pain subsided after some time. Patient was short of breath. Broke out in a cold sweat. No dizziness no lightheadedness. Patient was then transferred down here. Initial troponin is 1.4. Cardiology was informed.. Placed on IV heparin. This morning remains on IV heparin. No chest pain. Pending cardiac catheterization. at the bedside. September 06: Patient underwent cardiac catheterization with Dr. Solis yesterday. Successful stenting of the first diagonal branch and of the PLV branch of the RCA was done. This morning patient doing well. No chest pain or shortness of breath. Did ambulate. Seen by Dr. Solis cleared for discharge. Questions answered. Social history: Patient works at [employer]. . Cut back his smoking to about half a pack a week. Physical examination: VITAL SIGNS: 97.5, 80, 17, 1 one 9 x 81, 96% room air GENERAL: Sitting up, comfortable. EYES: Pupils equal. Conjunctiva jake l. HEENT: External appearance of nose and ears normal, oral cavity grossly normal. NECK: JVD not raised; masses not palpable. HEART: First and second heart sounds are normal; no edema. LUNGS: Respiratory rate normal; decreased breath sounds. ABDOMEN: Soft, nontender, liver spleen not palpable, no masses palpable. PSYCH: Alert and oriented x3; mood and affect jake l. MUSCULOSKELETAL:No Clubbing/cyanosis;muscles-grossly intact INVESTIGATIONS, reviewed in the clinical context: September 06: White count 6.2 hemoglobin 13.7 platelets 177 potassium 4.1 creatinine 0.93 September 05: White count 8 hemoglobin 14.5 platelets 205 sodium 141 potassium 4.4 creatinine 0.88 Troponin I 1.47, 1.99, 1.7 EKG tracing personally reviewed by me-normal sinus rhythm. Assessment plan: -Acute non-ST elevation myocardial infarction. Positive troponins. Patient has known CAD. Follows with Dr. Solis IV heparin. Lopressor. Aspirin. Cardiac catheterization on September 05: Dr. Solis:Successful stenting of the first diagonal branch and of the PLV branch of the RCA was done -Diabetes mellitus type 2 Trulicity. Follow Accu-Cheks with sliding scale. -Hyperlipidemia Lipitor -Essential hypertension Lopressor 25 mg twice daily. Lisinopril. -Chronic nicotine dependence, cigarette smoker Nicotine patch nicotine Disposition: Home Past Medical History Past Medical History: Hyperlipidemia, Hypertension History of Any Multi-Drug Resistant Organisms: None Reported Past Surgical History: No Surgical Hx Reported Additional Past Surgical History / Comment(s): STENT 05/21 Past Anesthesia/Blood Transfusion Reactions: No Reported Reaction Date of Last Stent Placement:: 05/23/2022 Past Psychological History: No Psychological Hx Reported Smoking Status: Former smoker Past Drug Use History: None Reported Plan - Discharge Summary Discharge Rx Participant: Yes New Discharge Prescriptions: New Nicotine 7Mg/24Hr Patch [Habitrol] 1 patch TRANSDERM DAILY #30 patch Ticagrelor [Brilinta] 90 mg PO BID #60 tab Nitroglycerin Sl Tabs [Nitrostat] 0.4 mg SUBLINGUAL Q5M PRN #30 tab PRN Reason: Chest Pain Continue lisinopriL [Zestril] 20 mg PO DAILY Fenofibrate 160 mg PO HS Metoprolol Tartrate [Lopressor] 25 mg PO BID #60 tab Atorvastatin [Lipitor] 80 mg PO HS Dulaglutide [Trulicity] 1.5 mg SQ TU Aspirin [Adult Low Dose Aspirin EC] 81 mg PO DAILY #90 tab Discharge Medication List Fenofibrate 160 mg PO HS 05/22/22 [History] lisinopriL [Zestril] 20 mg PO DAILY 05/22/22 [History] Aspirin [Adult Low Dose Aspirin EC] 81 mg PO DAILY #90 tab 05/24/22 [Rx] Metoprolol Tartrate [Lopressor] 25 mg PO BID #60 tab 05/24/22 [Rx] Atorvastatin [Lipitor] 80 mg PO HS 09/04/23 [History] Dulaglutide [Trulicity] 1.5 mg SQ TU 09/04/23 [History] Nicotine 7Mg/24Hr Patch [Habitrol] 1 patch TRANSDERM DAILY #30 patch 09/06/23 [Rx] Nitroglycerin Sl Tabs [Nitrostat] 0.4 mg SUBLINGUAL Q5M PRN #30 tab 09/06/23 [Rx] Ticagrelor [Brilinta] 90 mg PO BID #60 tab 09/06/23 [Rx] Follow up Appointment(s)/Referral(s): Conner Solis MD [STAFF PHYSICIAN] - 1 Week (Call and make boom) Konrad Rangel MD [Primary Care Provider] - 1-2 days (Call and make boom) Patient Instructions/Handouts: Heart Attack (DC) Activity/Diet/Wound Care/Special Instructions: dc if ok with cardiology Discharge Disposition: HOME SELF-CARE
== END 2023-09-06 11:09 | disposition home or self-care (01) | DRG 322 ==
LOC: EC 15:31 → 3SCARD 16:39
PROVIDERS: ADMIT Hospitalist; ATTEND Hospitalist
PROC: 027135Z Dilation of Coronary Artery, Two Arteries with Two Drug-eluting Intraluminal Devices, Percutaneous Approach (ICD-10-PCS; principal; 2023-09-05 17:00)
PROC: 4A023N7 Measurement of Cardiac Sampling and Pressure, Left Heart, Percutaneous Approach (ICD-10-PCS; 2023-09-05 17:00)
PROC: B2111ZZ Fluoroscopy of Multiple Coronary Arteries using Low Osmolar Contrast (ICD-10-PCS; 2023-09-05 17:00)
PROC: B2151ZZ Fluoroscopy of Left Heart using Low Osmolar Contrast (ICD-10-PCS; 2023-09-05 17:00)
PROC: 4A033BC Measurement of Arterial Pressure, Coronary, Percutaneous Approach (ICD-10-PCS; 2023-09-05 17:00)
PROC: B240ZZ3 Ultrasonography of Single Coronary Artery, Intravascular (ICD-10-PCS; 2023-09-05 17:00)
DX: I21.4 Non-ST elevation (NSTEMI) myocardial infarction (principal); F17.210 Nicotine dependence, cigarettes, uncomplicated; I25.10 Atherosclerotic heart disease of native coronary artery without angina pectoris; E78.5 Hyperlipidemia, unspecified; E78.00 Pure hypercholesterolemia, unspecified; I10 Essential (primary) hypertension; Z79.02 Long term (current) use of antithrombotics/antiplatelets; Z79.82 Long term (current) use of aspirin; Z79.84 Long term (current) use of oral hypoglycemic drugs; Z79.899 Other long term (current) drug therapy; Z82.49 Family history of ischemic heart disease and other diseases of the circulatory system
CPT/HCPCS: 36415; 76937; 80048; 80053; 80061; 84484; 85025; 85730; 92978; 92979; 93306; 93458; 93799; 96365; 96366; 99285

== ENCOUNTER 2024-06-09 18:29 | Observation (INO) | payer BC, OTHER ==
[2024-06-09] MEDS ORDERED: NITROGLYCERIN SL TABS 0.4 MG TAB SUBLINGUAL PRN (18:52)
--- NOTE | 2024-06-09 18:56 | ED ---
General Adult HPI - General Chief complaint: Chest Pain Stated complaint: Chest Pain Time Seen by Provider: 06/09/24 18:30 Source: patient, EMS Mode of arrival: EMS Limitations: no limitations - History of Present Illness Initial comments: Dictation was produced using Banno dictation software. please excuse any grammatical, word or spelling errors. Chief Complaint: 49-year-old male presents with chest pain History of Present Illness: Patient 49-year-old male with history of coronary artery disease coronary stent presents as a transfer from [facility]. He initially presented for chest pain which was reminiscent of his chest pain after he experienced heart attack. Patient was seen and evaluated there he had negative troponin. Patient [place] any chest pain at the bedside. The ROS documented in this emergency department record has been reviewed and confirmed by me. Those systems with pertinent positive or negative responses have been documented in the HPI. All other systems are other negative and/or noncontributory. - Related Data Home Medications Medication Instructions Recorded Confirmed Fenofibrate 160 mg PO HS 05/22/22 09/04/23 lisinopriL [Zestril] 20 mg PO DAILY 05/22/22 09/04/23 Atorvastatin [Lipitor] 80 mg PO HS 09/04/23 09/04/23 Dulaglutide [Trulicity] 1.5 mg SQ TU 09/04/23 09/04/23 Previous Rx's Medication Instructions Recorded Aspirin [Adult Low Dose Aspirin EC] 81 mg PO DAILY #90 tab 05/24/22 Metoprolol Tartrate [Lopressor] 25 mg PO BID #60 tab 05/24/22 Nicotine 7Mg/24Hr Patch [Habitrol] 1 patch TRANSDERM DAILY #30 patch 09/06/23 Nitroglycerin Sl Tabs [Nitrostat] 0.4 mg SUBLINGUAL Q5M PRN #30 tab 09/06/23 Ticagrelor [Brilinta] 90 mg PO BID #60 tab 09/06/23 Allergies Allergy/AdvReac Type Severity Reaction Status Date / Time No Known Allergies Allergy Verified 06/09/24 18:54 Review of Systems ROS Statement: Those systems with pertinent positive or pertinent negative responses have been documented in the HPI. ROS Other: All systems not noted in ROS Statement are negative. Past Medical History Past Medical History: Diabetes Mellitus, Hyperlipidemia, Hypertension, Myocardial Infarction (CA) Additional Past Medical History / Comment(s): Hx MIx3 with stents History of Any Multi-Drug Resistant Organisms: None Reported Past Surgical History: Heart Catheterization With Stent Additional Past Surgical History / Comment(s): STENT 05/21 Past Anesthesia/Blood Transfusion Reactions: No Reported Reaction Date of Last Stent Placement:: 05/23/2022 Past Psychological History: No Psychological Hx Reported Smoking Status: Former smoker Past Alcohol Use History: None Reported Past Drug Use History: None Reported - Past Family History Mother Family Medical History: Coronary Artery Disease (CAD) Father Family Medical History: Coronary Artery Disease (CAD) Additional Family Medical History / Comment(s): at 37 from a "massive heart attack" General Exam - General Exam Comments Initial Comments: PHYSICAL EXAM: General Impression: Alert and oriented x3, not in acute distress HEENT: Normocephalic atraumatic, extra-ocular movements intact, pupils equal and reactive to light bilaterally, mucous membranes moist. Cardiovascular: Heart regular rate and rhythm Chest: Able to complete full sentences, no retractions, no tachypnea Abdomen: abdomen soft, non-tender, non-distended, no organomegaly Musculoskeletal: Pulses present and equal in all extremities, no peripheral edema Motor: no focal deficits noted Neurological: CN II-XII grossly intact, no focal motor or sensory deficits noted Skin: Intact with no visualized rashes Psych: Normal affect and mood Limitations: no limitations Course Vital Signs 06/09/24 18:34 Temperature 97.8 F Pulse Rate 77 Respiratory 18 Rate Blood Pressure 120/76 O2 Sat by Pulse 98 Oximetry EKG Findings - EKG Comments: EKG Findings:: My EKG interpretation: Ventricular rate 70, sinus rhythm,. 180, QRS 92, QTc 423. No MD prolongation, no QTC prolongation, no ST or T-wave changes noted. Overall, this EKG is unremarkable Medical Decision Making - Medical Decision Making Was pt. sent in by a medical professional or institution (, PA, SOCKET PULLER, urgent care, hospital, or skilled nursing...) When possible be specific @ -Outside emergency department Did you speak to anyone other than the patient for history (EMS, parent, family, police, friend...)? What history was obtained from this source @ -Transferring ER physician Did you review nursing and triage notes (agree or disagree)? Why? @ -I reviewed and agree with nursing and triage notes Were old charts reviewed (outside hosp., previous admission, EMS record, old EKG, old radiological studies, urgent care reports/EKG's, skilled nursing records)? Report findings @ -Transfer documentation reviewed Differential Diagnosis (chest pain, altered mental status, abdominal pain women, abdominal pain men, vaginal bleeding, musculoskeletal, weakness, fever, dyspnea, syncope, headache, dizziness, GI bleed, back pain, seizure, CVA, palpatations, mental health)? @ -Differential Chest Pain: Stable Angina, Unstable Angina, STEMI, NSTEMI Aortic Dissection, Pneumothorax, Musculoskeletal, Esophageal Spasm GERD, Cholecystitis, Pancreatitis, Zoster, this is not meant to be an all-inclusive list. EKG interpreted by me (3pts min.). @ -None done X-rays interpreted by me (1pt min.). @ -None done CT interpreted by me (1pt min.). @ -None done U/S interpreted by me (1pt. min.). @ -None done What testing was considered but not performed or refused? (CT, X-rays, U/S, labs)? Why? @ -None What meds were considered but not given or refused? Why? @ -None Was smoking cessation discussed for >3mins.? @ -No Were there social determinants of health that impacted care today? How? (Homelessness, low income, unemployed, alcoholism, drug addiction, transportation, low edu. Level, literacy, decrease access to med. care, care home, rehab)? @ -No Was there de-escalation of care discussed even if they declined (Discuss DNR or withdrawal of care, Hospice)? DNR status @ -No What co-morbidities impacted this encounter? (DM, HTN, Smoking, COPD, CAD, Cancer, CVA, ARF, Chemo, Hep., AIDS, mental health diagnosis, sleep apnea, morbid obesity)? @ -None Was patient admitted / discharged? Hospital course, mention meds given and route, prescriptions, significant lab abnormalities, going to OR and other pertinent info. @ -49-year-old male transferred from [facility] for chest pain. 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 Vital signs stable. EKG is unremarkable. Patient well-appearing at the bedside denies any chest pain at the bedside. Will be admitted observation consultation to cardiology. Discussed with hospitalist for admission Did you discuss the management of the patient with other professionals (professionals i.e. , PA, SOCKET PULLER, lab, RT, psych nurse, social media senior associate, chocolate refining roller, teacher, parachute/combatant diver officer, disability case manager)? Give summary @ -No Was critical care preformed (if so, how long)? @ -No Undiagnosed new problem with uncertain prognosis? @ -No Drug Therapy requiring intensive monitoring for toxicity (Heparin, Nitro, Insulin, Cardizem)? @ -No Were any procedures done? @ -No Diagnosis/symptom? Acute, or Chronic, or Acute on Chronic? Uncomplicated (without systemic symptoms) or Complicated (systemic symptoms)? @ -Chest pain Side effects of treatment? @ -No Exacerbation, Progression, or Severe Exacerbation? @ -No Poses a threat to life or bodily function? How? (Chest pain, [place], CA, pneumonia, PE, COPD, DKA, ARF, appy, cholecystitis, CVA, Diverticulitis, Homicidal, Suicidal, threat to staff... and all critical care pts) @ -yes Disposition Clinical Impression: Chest pain Disposition: ADMITTED IP TO THIS [facility] Condition: Fair Referrals: Konrad Rangel MD [Primary Care Provider] - 1-2 days Decision Time: 18:56
--- NOTE | 2024-06-09 22:17 | P.HPIM ---
History of Present Illness H&P Date: 06/09/24 Chief Complaint: Chest pain Pleasant 49-year-old patient who follows with, Margot Rasmussen. 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 Had a stent placed in April 2022. August 2023 underwent had a non-ST elevation [place]. Successful stent to the first diagonal branch and of the PLV branch of the RCA by Dr. Solis. Patient the ER. Accompanied by his . Today around 3 PM while doing stuff around the house developed pressure across the chest. Patient did take a nitro with no help. Went down to [facility]. There is pain currently with morphine. Symptoms lasted for good over an hour. No radiation. Patient otherwise been doing well since August of this year. Does follow Dr. Solis Review of systems: GEN.: None EYES: None HEENT: None NECK: None RESPIRATORY: As above ne CARDIOVASCULAR: [As above GASTROINTESTINAL: None GENITOURINARY: None MUSCULOSKELETAL: None LYMPHATICS: None HEMATOLOGICAL: None PSYCHIATRY: None NEUROLOGICAL: None Social history: Patient works at [employer]. . Patient stopped smoking since August. Physical examination: VITAL SIGNS: 97.8, 81, 16, 92.71, 94% room GENERAL: Planning bed, comfortable EYES: Pupils equal. Conjunctiva jake l. HEENT: External appearance of nose and ears normal, oral cavity grossly normal. NECK: JVD not raised; masses not palpable. HEART: First and second heart sounds are normal; no edema. LUNGS: Respiratory rate normal; decreased breath sounds. ABDOMEN: Soft, nontender, liver spleen not palpable, no masses palpable. PSYCH: Alert and oriented x3; mood and affect jake l. MUSCULOSKELETAL:No Clubbing/cyanosis;muscles-grossly intact NEUROLOGICAL: Cranial nerves grossly intact; no facial asymmetry, power and sensation grossly intact. LYMPHATICS: No lymph nodes palpable in the axilla and neck INVESTIGATIONS, reviewed in the clinical context: Troponin I less than 0.012 Assessment plan: -Possible unstable angina the patient known coronary artery disease. Currently chest pain-free. Troponins negative. -CAD. Cardiac catheterization on September 05: Dr. Solis:- stenting of the first diagonal branch and of the PLV branch of the RCA was done -Diabetes mellitus type 2 Trulicity. Follow Accu-Cheks with sliding scale. -Hyperlipidemia Lipitor -Essential hypertension Lopressor 25 mg twice daily. Lisinopril. Care discussed with the patient . Cardiology consulted. Past Medical History Past Medical History: Diabetes Mellitus, Hyperlipidemia, Hypertension, Myocardial Infarction (GA) Additional Past Medical History / Comment(s): Hx MIx3 with stents History of Any Multi-Drug Resistant Organisms: None Reported Past Surgical History: Heart Catheterization With Stent Additional Past Surgical History / Comment(s): STENT 05/21 Past Anesthesia/Blood Transfusion Reactions: No Reported Reaction Date of Last Stent Placement:: 05/23/2022 Past Psychological History: No Psychological Hx Reported Smoking Status: Former smoker Past Alcohol Use History: None Reported Past Drug Use History: None Reported - Past Family History Mother Family Medical History: Coronary Artery Disease (CAD) Father Family Medical History: Coronary Artery Disease (CAD) Additional Family Medical History / Comment(s): at 37 from a "massive heart attack" Medications and Allergies Home Medications Medication Instructions Recorded Confirmed Type Fenofibrate 160 mg PO HS 05/22/22 06/09/24 History lisinopriL [Zestril] 20 mg PO DAILY 05/22/22 06/09/24 History Aspirin [Adult Low Dose Aspirin EC] 81 mg PO DAILY #90 tab 05/24/22 06/09/24 Rx Metoprolol Tartrate [Lopressor] 25 mg PO BID #60 tab 05/24/22 06/09/24 Rx Atorvastatin [Lipitor] 80 mg PO HS 09/04/23 06/09/24 History Nitroglycerin Sl Tabs [Nitrostat] 0.4 mg SUBLINGUAL Q5M PRN #30 tab 09/06/23 06/09/24 Rx Clopidogrel [Plavix] 75 mg PO DAILY 06/09/24 06/09/24 History Dulaglutide [Trulicity] 3 mg SQ FR 06/09/24 06/09/24 History Allergies Allergy/AdvReac Type Severity Reaction Status Date / Time No Known Allergies Allergy Verified 06/09/24 18:54 Physical Exam Vitals: Vital Signs Temp Pulse Resp BP Pulse Ox 06/09/24 21:00 68 18 105/71 94 L 06/09/24 20:00 75 17 92/65 94 L 06/09/24 19:00 77 18 106/78 97 06/09/24 18:34 97.8 F 77 18 120/76 98 Intake and Output 06/09/24 06/09/24 06/09/24 06:59 14:59 22:59 Other: Weight 82.554 kg
[2024-06-10 07:59] VITALS: RESP 16
[2024-06-10] MEDS ORDERED: ASPIRIN 325 MG TAB PO SCH (09:00)
--- NOTE | 2024-06-10 09:41 | P.CRDCN ---
History of Present Illness Consult date: 06/10/24 Consult reason: chest pain History of present illness: This is a 49-year-old male patient of Dr. Solis with past medical history of coronary artery disease with prior stenting of the LAD and diagonal, as well as, PLV of the RCA, history of hypertension, dyslipidemia, diabetes mellitus type 2, remote history of tobacco use. We have been asked to evaluate the patient for chest pain. He states he had onset of chest pain that went across his chest around 3 in the afternoon. He took aspirin and nitroglycerin at home and the nitroglycerin did not help the pain. He then had his bring him into the hospital for further evaluation. He was given a Nitropaste and also morphine and 1 of those did help his pain. Pain is completely gone now. He denies any shortness of breath or palpitations. No increased pain with exertion and no creased dyspnea with exertion. He states he has been taking all of his medications as directed. He does state that this pain is different from when he had a stent placed in the past. Patient initially presented to [facility] and then transferred to [facility]. Patient is seen today in the emergency center waiting for a bed on the observation unit. Blood pressure 107/75, heart rate 69, pulse ox 94% on room air. EKG: Sinus rhythm with no acute ST-T wave changes. Laboratory studies: CBC within normal limits. Sodium 141, potassium 4.1, creatinine 0.93. Troponin negative x 3. Liver function test are normal. Home cardiac medications: Aspirin 81 mg daily, atorvastatin 80 mg at bedtime, Plavix 75 mg daily, fenofibrate 160 mg at bedtime, lisinopril 20 mg daily, Lopressor 25 mg twice daily, Nitrostat as needed. Echocardiogram performed 09/05/2023 reveals EF 55 to 60%, trace to mild mitral and tricuspid regurgitation. Cardiac catheterization performed in the setting of NSTEMI 09/05/2023 revealed patent stent in the proximal LAD, intermediate disease involving the mid LAD with nonflow limited by Doppler wire, critical disease in the large first diagonal branch of the LAD, critical disease involving the large LV branch of the RCA, normal left-sided filling pressures. Patient underwent successful stenting of the diagonal branch and LV branch. Review Of Systems: At the time of my exam: CONSTITUTIONAL: Denies fever or chills. HEENT: Denies blurred vision, vision changes, or eye pain. Denies hemoptysis CARDIOVASCULAR: Denies chest pain. Denies orthopnea. Denies PND. Denies palpitations RESPIRATORY: Denies shortness of breath. GASTROINTESTINAL: Denies abdominal pain. Denies nausea or vomiting. HEMATOLOGIC: Denies bleeding disorders. GENITOURINARY: Denies any blood in urine. SKIN: Denies puritis. Denies rash. Physical examination: Gen: This is a 49-year-old male in no acute distress. VS: reviewed HEENT: Head is atraumatic, normocephalic. Pupils equal, round. Sclerae is anict jt. NECK: Supple. No JVD. LUNGS: Clear to auscultation. No wheezes or rhonchi. No intercostal retractions. HEART: Regular rate and rhythm. No murmur. ABDOMEN: Soft No tenderness. EXTREMITIES: No pedal edema. No calf tenderness. NEUROLOGICAL: Patient is awake, alert and oriented x3. Assessment: Atypical chest pain, acute coronary syndrome ruled out with negative troponins History of coronary artery disease as above Hypertension Dyslipidemia Diabetes mellitus type 2 Previous history of tobacco use and dependence Plan: Resume patient's home cardiac medications Obtain exercise stress test today If stress test is unremarkable, patient is cleared for discharge from cardiology will follow-up in the office with Dr. Solis in 1 to 2 weeks. Thank you kindly for this consultation. Nurse practitioner note has been reviewed, I agree with documented findings and plan of care. Patient was seen and examined. Past Medical History Past Medical History: Diabetes Mellitus, Hyperlipidemia, Hypertension, Myocardial Infarction ([place]) Additional Past Medical History / Comment(s): Hx MIx3 with stents History of Any Multi-Drug Resistant Organisms: None Reported Past Surgical History: Heart Catheterization With Stent Additional Past Surgical History / Comment(s): STENT 05/21 Past Anesthesia/Blood Transfusion Reactions: No Reported Reaction Date of Last Stent Placement:: 05/23/2022 Past Psychological History: No Psychological Hx Reported Smoking Status: Former smoker Past Alcohol Use History: None Reported Past Drug Use History: None Reported - Past Family History Mother Family Medical History: Coronary Artery Disease (CAD) Father Family Medical History: Coronary Artery Disease (CAD) Additional Family Medical History / Comment(s): at 37 from a "massive heart attack" Medications and Allergies Home Medications Medication Instructions Recorded Confirmed Type Fenofibrate 160 mg PO HS 05/22/22 06/09/24 History lisinopriL [Zestril] 20 mg PO DAILY 05/22/22 06/09/24 History Aspirin [Adult Low Dose Aspirin EC] 81 mg PO DAILY #90 tab 05/24/22 06/09/24 Rx Metoprolol Tartrate [Lopressor] 25 mg PO BID #60 tab 05/24/22 06/09/24 Rx Atorvastatin [Lipitor] 80 mg PO HS 09/04/23 06/09/24 History Nitroglycerin Sl Tabs [Nitrostat] 0.4 mg SUBLINGUAL Q5M PRN #30 tab 09/06/23 06/09/24 Rx Clopidogrel [Plavix] 75 mg PO DAILY 06/09/24 06/09/24 History Dulaglutide [Trulicity] 3 mg SQ FR 06/09/24 06/09/24 History Allergies Allergy/AdvReac Type Severity Reaction Status Date / Time No Known Allergies Allergy Verified 06/09/24 18:54 Physical Exam Vitals: Vital Signs Temp Pulse Resp BP Pulse Ox 06/10/24 04:00 76 10 L 97/74 93 L 06/10/24 03:00 73 13 92/66 93 L 06/10/24 02:00 76 13 92/66 93 L 06/10/24 01:00 65 12 98/73 93 L 06/10/24 00:00 78 13 92/68 93 L 06/09/24 23:20 75 10 L 99/72 93 L 06/09/24 23:00 74 15 99/72 94 L 06/09/24 22:00 81 16 92/71 94 L 06/09/24 21:00 68 18 105/71 94 L 06/09/24 20:00 75 17 92/65 94 L 06/09/24 19:00 77 18 106/78 97 06/09/24 18:34 97.8 F 77 18 120/76 98 Intake and Output 06/09/24 06/10/24 06/10/24 22:59 06:59 14:59 Other: Weight 82.554 kg Results Cardiac Enzymes 06/09/24 06/09/24 06/10/24 Range/Units 18:36 21:43 00:20 Troponin I <0.012 <0.012 <0.012 (0.000-0.034) ng/mL Current Medications Generic Name Dose Route Start Last Admin Trade Name Freq PRN Reason Stop Dose Admin Aspirin 325 mg 06/10/24 09:00 Aspirin 325 Mg Tab PO DAILY BASIL Nitroglycerin 0.4 mg 06/09/24 18:52 Nitroglycerin Sl Tabs 0.4 Mg Tab SUBLINGUAL Q5M PRN Chest Pain Intake and Output 06/09/24 06/10/24 06/10/24 22:59 06:59 14:59 Other: Weight 82.554 kg
[2024-06-10 09:48] VITALS: TEMP 97.9
[2024-06-10] MEDS: lisinopriL 20 MG TAB PO SCH (09:48)
[2024-06-10] MEDS: ASPIRIN 81 MG PO SCH (09:48)
[2024-06-10] MEDS: CLOPIDOGREL 75 MG TAB PO SCH (09:48)
[2024-06-10 10:23] LABS: Chol/HDL Ratio 4.01 Ratio
--- NOTE | 2024-06-10 12:16 | CA ---
Exercise Stress Test Report Name: Wily Funes Exam Date: 06/10/2024 11:01 Exam Location: [facility] Stress Ht (in): 69 Wt (lb): 182 BSA: 1.98 Ordering Phys: Neha Hillman Referring Phys: SANNA,, Technologist: Hola Cheung Age: 49 Gender: M : 1975 Procedure CPT: Indications: Chest Pain ICD-10 Codes: Patient History: Chest pain with history of ASCAD Medications: Meds past 24 hrs: Pretest Chest Pain: STRESS TEST Michael Protocol Exercise Duration (min:sec): 09:[address] Depressions (mm): Angina Score: Silva Score: Resting HR (bpm): 64 Peak HR (bpm): 155 Resting BP (mmHg): 105 / 70 Peak BP (mmHg): 169 / 72 MPHR: 169 Target HR: 144 % MPHR: 92 METS: 11.1 Total Dose: Peak Dose: Atropine: Double Product: 36522 BP Response: Stress Termination: Reached target heart rate Stress Symptoms: No chest pain or symptoms Stress Summary: ECG ANALYSIS Resting ECG: Stress ECG: CONCLUSIONS Excellent exercise tolerance Normal electrocardiogram stress test Dr. Conner Solis MD (Electronically Signed) Final Date: 10 June 2024 12:15
[2024-06-10] MEDS: METOPROLOL TARTRATE 25 MG TAB PO SCH (13:14)
[2024-06-10 14:02] VITALS: BP 138/75; PULSE 87
--- NOTE | 2024-06-10 19:32 | P.DS ---
Providers Date of admission: 06/09/24 18:52 Expected date of discharge: 06/10/24 Attending physician: Jerrell Thomas Consults: 06/09/24 18:52 Consult Physician Urgent Consulting Provider: Conner Solis Reason/Comments: chest pain Do you want consulting provider notified?: Yes Primary care physician: [facility] Course: Chief Complaint: Chest pain Pleasant 49-year-old patient who follows with, Margot Rasmussen. 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 Had a stent placed in April 2022. August 2023 underwent had a non-ST elevation RI. Successful stent to the first diagonal branch and of the PLV branch of the RCA by Dr. Solis. Patient the ER. Accompanied by his . Today around 3 PM while doing stuff around the house developed pressure across the chest. Patient did take a nitro with no help. Went down to [facility]. There is pain currently with morphine. Symptoms lasted for good over an hour. No radiation. Patient otherwise been doing well since August of this year. Does follow Dr. Solis June 10: Comfortable. Underwent a exercise stress test. Negative. Cleared by Dr. Solis. Follow-up outpatient with him. Social history: Patient works at [employer]. . Patient stopped smoking since August. Physical examination: VITAL SIGNS: 97.9, 87, 16, 1 3 personally 5, 93% room air GENERAL: Comfortable e EYES: Pupils equal. Conjunctiva jake l. HEENT: External appearance of nose and ears normal, oral cavity grossly normal. NECK: JVD not raised; masses not palpable. HEART: First and second heart sounds are normal; no edema. LUNGS: Respiratory rate normal; decreased breath sounds. ABDOMEN: Soft, nontender, liver spleen not palpable, no masses palpable. PSYCH: Alert and oriented x3; mood and affect jake l. MUSCULOSKELETAL:No Clubbing/cyanosis;muscles-grossly intact NEUROLOGICAL: Cranial nerves grossly intact; no facial asymmetry, power and sensation grossly intact. LYMPHATICS: No lymph nodes palpable in the axilla and neck INVESTIGATIONS, reviewed in the clinical context: Exercise stress test: Negative LDL 44 Troponin I less than 0.012 Assessment plan: -Anterior chest wall pain. Possibly musculoskeletal. [place] stress test negative -CAD. Cardiac catheterization on September 05: Dr. Solis:- stenting of the first diagonal branch and of the PLV branch of the RCA was done -Diabetes mellitus type 2 Trulicity. Follow Accu-Cheks with sliding scale. -Hyperlipidemia Lipitor -Essential hypertension Lopressor 25 mg twice daily. Lisinopril. Disposition: Home Past Medical History Past Medical History: Diabetes Mellitus, Hyperlipidemia, Hypertension, Myocardial Infarction (RI) Additional Past Medical History / Comment(s): Hx MIx3 with stents History of Any Multi-Drug Resistant Organisms: None Reported Past Surgical History: Heart Catheterization With Stent Additional Past Surgical History / Comment(s): STENT 05/21 Past Anesthesia/Blood Transfusion Reactions: No Reported Reaction Date of Last Stent Placement:: 05/23/2022 Past Psychological History: No Psychological Hx Reported Smoking Status: Former smoker Past Alcohol Use History: None Reported Past Drug Use History: None Reported Plan - Discharge Summary New Discharge Prescriptions: Continue lisinopriL [Zestril] 20 mg PO DAILY Fenofibrate 160 mg PO HS Metoprolol Tartrate [Lopressor] 25 mg PO BID #60 tab Atorvastatin [Lipitor] 80 mg PO HS Clopidogrel [Plavix] 75 mg PO DAILY Aspirin [Adult Low Dose Aspirin EC] 81 mg PO DAILY #90 tab Nitroglycerin Sl Tabs [Nitrostat] 0.4 mg SUBLINGUAL Q5M PRN #30 tab PRN Reason: Chest Pain Dulaglutide [Trulicity] 3 mg SQ FR Discharge Medication List Fenofibrate 160 mg PO HS 05/22/22 [History] lisinopriL [Zestril] 20 mg PO DAILY 05/22/22 [History] Aspirin [Adult Low Dose Aspirin EC] 81 mg PO DAILY #90 tab 05/24/22 [Rx] Metoprolol Tartrate [Lopressor] 25 mg PO BID #60 tab 05/24/22 [Rx] Atorvastatin [Lipitor] 80 mg PO HS 09/04/23 [History] Nitroglycerin Sl Tabs [Nitrostat] 0.4 mg SUBLINGUAL Q5M PRN #30 tab 09/06/23 [Rx] Clopidogrel [Plavix] 75 mg PO DAILY 06/09/24 [History] Dulaglutide [Trulicity] 3 mg SQ FR 06/09/24 [History] Follow up Appointment(s)/Referral(s): Conner Solis MD [STAFF PHYSICIAN] - 06/21/24 3:45 pm Konrad Rangel MD [Primary Care Provider] - 06/13/24 11:00 am (post hospital visit ) Patient Instructions/Handouts: Chest Pain (DC), Cardiac Stress Test (DC) Activity/Diet/Wound Care/Special Instructions: OK TO D/C HOME TODAY. CONTINUE ALL HOME MEDICATIONS DIRECTED. NO RESTRICTIONS TODAY. IF CHEST PAIN OCCURS, CALL 911 AND GO TO ER. Discharge Disposition: HOME SELF-CARE
[2024-06-10] MEDS ORDERED: FENOFIBRATE 160 MG TAB PO SCH (21:00)
[2024-06-10] MEDS ORDERED: ATORVASTATIN 80 MG TAB PO SCH (21:00)
== END 2024-06-10 13:50 | disposition home or self-care (01) ==
LOC: EC 18:29 → 6NMEDSUR 18:52
PROVIDERS: ADMIT Hospitalist; ATTEND Hospitalist
DX: R07.9 Chest pain, unspecified (principal); I25.10 Atherosclerotic heart disease of native coronary artery without angina pectoris; I25.2 Old myocardial infarction; I10 Essential (primary) hypertension; E11.9 Type 2 diabetes mellitus without complications; E78.5 Hyperlipidemia, unspecified; Z79.02 Long term (current) use of antithrombotics/antiplatelets; Z79.82 Long term (current) use of aspirin; Z79.899 Other long term (current) drug therapy; Z87.891 Personal history of nicotine dependence; Z95.5 Presence of coronary angioplasty implant and graft; Z79.85 Long-term (current) use of injectable non-insulin antidiabetic drugs
CPT/HCPCS: 99285; 36415; 93005; 93017; 80061; 84484 ×2; G0378 ×2